=== PATIENT | female | born 1950 | race Hispanic/Latino ===

== ENCOUNTER 2023-03-08 22:07 | Emergency (ER) | payer OTHER ==
--- OUTSIDE RECORDS SUMMARY | 2023-03-08 22:16 | XMS REPORT | Continuity of Care Document ---
:1950 Author Organization [facility] t Address [address] [place] [address] [place] [id number] Care Team Providers Name Role Phone ADOLFO BOSCH Primary Care Physician Unavailable LORENA SOLIS Attending Clinician Unavailable Adolfo Bosch Attending Clinician Unavailable Rudy Maldonado Attending Clinician Unavailable Sowmya Whelan Attending Clinician Unavailable Leticia Fleming Attending Clinician Unavailable DECLAN MCCALLUM Attending Clinician Unavailable SANTANA MEZA Attending Clinician Unavailable Santana Wheeler Attending Clinician Doctor Unassigned, [place] Attending Clinician Unavailable Pob, [facility] Main Attending Clinician Unavailable Lorena Solis MD Attending Clinician 2, [facility] Attending Clinician Unavailable Vtc-Lab Attending Clinician Unavailable Declan Mccallum MD Attending Clinician MELLISSA PARHAM Attending Clinician Unavailable Mellissa Parham MD Attending Clinician ZOË CASAREZ Attending Clinician Unavailable Zoë Rodriguez Attending Clinician Alem Carmen PA-C Attending Clinician Angela Dela Cruz MD Attending Clinician ANGELA DELA CRUZ Attending Clinician Unavailable ALEM CARMEN Attending Clinician Unavailable Thuy Ny Attending Clinician MELBA OBRIEN Attending Clinician Unavailable Melba Garrido Attending Clinician Norberto Du MD Attending Clinician Yamilet LANG, Roberto Huerta Attending Clinician Ra Caldera DO Attending Clinician Gustavo Lezama MD Attending Clinician GUSTAVO LEZAMA Attending Clinician Unavailable Lab, [facility] Attending Clinician Unavailable Prasanth LANG, Sean Jennings Attending Clinician [phone] Annie Morel Attending Clinician LORENA SOLIS Admitting Clinician Unavailable Lorena Solis MD Admitting Clinician MELLISSA PARHAM Admitting Clinician Unavailable MELBA OBRIEN Admitting Clinician Unavailable Payers Payer Name Policy Type Policy Number Effective Date Expiration Date S loli MEDICARE PART A [id number] 2016 \T\ B 00:00:00 MEDICARE [id number] 2018 [facility] NOVITAS 00:00:00 [facility] MEDICARE MB [id number] 2018 [facility] NOVITAS 00:00:00 [facility] Problems Condition Condition Condition Status Onset Resolution Last Treating Co mments Source Name Details Category Date Date Treatment Clinician Date Osteopenia Osteopenia Disease Active 2019-0 U nivers 1-22 ity of 00:00: [address] Branch Asymptomat Asymptomat Disease Active U nivers ic ic 1-10 ity of microscop[place] 00 Medical hematuria hematuria Bran ch Positive Positive Disease Active 2017-10 Unive rs anti-CCP anti-CCP 10-29 ity of test: 89 test: 89 00:00: [address] Branch Positive Positive Disease Active 2017-10 Unive rs ROMEL ROMEL 10-28 ity of (antinucle [place]antinucle [place] Medical antibody) antibody) Bran ch 1:160 1:160 SS-A SS-A Disease Active 2017-10 Univers antibody antibody 1- ity of positive positive 00:00: [place] 00 Medical Branch At risk At risk Disease Active 2017-10 Univers for bone for bone 0-31 ity of density density 00:00: [place] loss loss 00 [facility] Branch [id number] BMI Problem Common 27.0-27.9, [facility] adult - [facility] [id number] BMI Problem Common 31.0-31.9, [facility] adult - [facility] [id number] [place] [address] (BMI Spirit 30.0-34.9) [facility] [id number] Mixed Problem Common hyperlipid Spirit emia [facility] Allergic Allergic Problem Commo n rhinitis rhinitis, Spiri t unspecifie - d [facility] [id number] Type 2 Problem Common diabetes [facility] mellitus - without complicati [facility] on, Medical without Center long-term current use of insulin [id number] 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 [id number] Overweight Problem Co mmon (BMI Spirit 25.0-29.9) - [facility] [id number] SOB Problem Common (shortness Spirit of breath) - [facility] Allergies, Adverse Reactions, Alerts Allergy Allergy Status Severity Reaction(s) Onset Inactive Treating Comm ents Source Name Type Date Date Clinician NO KNOWN Drug Active Univers ALLERGIE Class ity of S [facility] Social History Social Habit Start Date Stop Date Quantity Comments Source History of [facility] - Tobacco Use [facility] Sex Assigned At [facility] - [facility] Exposure to 2023-02-04 2023-02-14 Not sure University of SARS-CoV-2 00:00:00 09:55:00 [place] Medical (event) Branch Alcohol intake 2023-02-14 2023-02-14 Current University of 00:00:00 00:00:00 non-drinker of [facility] alcohol (finding) [place] Tobacco use and 2022-05-28 2022-05-28 Smokeless tobacco Un iversity of exposure 00:00:00 00:00:00 non-user [facility] Smoking Status Start Date Stop Date Source Never smoked tobacco [facility] Medications Ordered Filled Start Stop Current Ordering Indication Dosage Frequency Signature Comments Components Source Medication Medication Date Date Medication? Clinician (SIG) Name Name diclofenac 2022- Yes [id number] 75mg Take 1 Univers 75 mg EC 02-14 [id number] tablet by ity of tablet 00:00: 04:59 mouth 2 [place] 00 :00 (two) Medical times [place] daily with meals for 30 days. diclofenac 2022- Yes [id number] 75mg Take 1 Univers 75 mg EC 02-14 [id number] tablet by ity of tablet 00:00: 04:59 mouth 2 [place] 00 :00 (two) Medical times [place] daily with meals for 30 days. acetaminoph Yes 1000mg Take 1,000 Univers en 500 mg 2-14 mg by ity of tablet 13:11: mouth [place] 22 every 12 Medical (twelve) Branch hours as needed for Pain. calcium-vit Yes 1{tbl} Take 1 Un pamella geronimo D 250 2-14 tablet by ity of (625)-125 13:11: mouth [place] mg-unit per 22 daily. Medica l tablet Branch omega Yes Take by Univers 3-dha-epa-f 2-14 mouth. ity of rosemary oil 13:11: [place] 100-160-1,0 22 Medical 00 mg Cap Branch atorvastati Yes 10mg Take 10 mg Univers n 10 mg 2-14 by mouth ity of tablet 13:11: at [place] 22 bedtime. Medical Branch telmisartan Yes 80mg Take 80 mg Univers 80 mg 2-14 by mouth ity of tablet 13:11: daily. [place] [address] Medical Branch metFORMIN Yes 1{tbl} Take 1 Univ ers 1,000 mg 2-14 tablet by ity of tablet 13:11: mouth 2 [place] 22 (two) Medical times Branch daily with meals. acetaminoph 2023-0 Yes 1000mg Take 1,000 Univers en 500 mg 2-14 mg by ity of tablet 13:11: mouth [place] 22 every 12 Medical (twelve) Branch hours as needed for Pain. calcium-vit 3-0 Yes 1{tbl} Take 1 Un pamella geronimo D 250 2-14 tablet by ity of (625)-125 13:11: mouth [place] mg-unit per 22 daily. Medica l tablet Branch omega 2022-0 Yes Take by Univers 3-dha-epa-f 2-14 mouth. ity of rosemary oil 13:11: [place] 100-160-1,0 22 Medical 00 mg Cap Branch atorvastati 2022-0 Yes 10mg Take 10 mg Univers n 10 mg 2-14 by mouth ity of tablet 13:11: at [place] [address] bedtime. Medical Branch telmisartan 2022-0 Yes 80mg Take 80 mg Univers 80 mg 2-14 by mouth ity of tablet 13:11: daily. 22 Medical Branch metFORMIN 3-0 Yes 1{tbl} Take 1 Univ ers 1,000 mg 2-14 tablet by ity of tablet 13:11: mouth 2 22 (two) Medical times Branch daily with meals. acetaminoph 3-0 Yes 1000mg Take 1,000 Univers en 500 mg 2-14 mg by ity of tablet 13:11: mouth [place] 22 every 12 Medical (twelve) Branch hours as needed for Pain. calcium-vit 2022-0 Yes 1{tbl} Take 1 Un pamella geronimo D 250 2-14 tablet by ity of (625)-125 13:11: mouth [place] mg-unit per 22 daily. Medica l tablet Branch omega 2022-0 Yes Take by Univers 3-dha-epa-f 2-14 mouth. ity of rosemary oil 13:11: [place] 100-160-1,0 22 Medical 00 mg Cap Branch atorvastati 2022-0 Yes 10mg Take 10 mg Univers n 10 mg 2-14 by mouth ity of tablet 13:11: at [place] 22 bedtime. Medical Branch telmisartan 3-0 Yes 80mg Take 80 mg Univers 80 mg 2-14 by mouth ity of tablet 13:11: daily. [place] 22 Medical Branch metFORMIN 2023-0 Yes 1{tbl} Take 1 Univ ers 1,000 mg 2-14 tablet by ity of tablet 13:11: mouth 2 22 (two) Medical times Branch daily with meals. acetaminoph 2023-0 Yes 1000mg Take 1,000 Univers en 500 mg 2-14 mg by ity of tablet 13:11: mouth [place] 22 every 12 Medical (twelve) Branch hours as needed for Pain. calcium-vit 2023-0 Yes 1{tbl} Take 1 Un pamella geronimo D 250 2-14 tablet by ity of (625)-125 13:11: mouth [place] mg-unit per 22 daily. Medica l tablet Branch omega 2022-0 Yes Take by Univers 3-dha-epa-f 2-14 mouth. ity of rosemary oil 13:11: [place] 100-160-1,0 22 Medical 00 mg Cap Branch atorvastati 2022-0 Yes 10mg Take 10 mg Univers n 10 mg 2-14 by mouth ity of tablet 13:11: at [place] [address] bedtime. Medical Branch telmisartan 2022-0 Yes 80mg Take 80 mg Univers 80 mg 2-14 by mouth ity of tablet 13:11: daily. [place] [address] Medical Branch metFORMIN 3-0 Yes 1{tbl} Take 1 Univ ers 1,000 mg 2-14 tablet by ity of tablet 13:11: mouth 2 22 (two) Medical times Branch daily with meals. acetaminoph 2023-0 Yes 1000mg Take 1,000 Univers en 500 mg 2-14 mg by ity of tablet 13:11: mouth [place] 22 every 12 Medical (twelve) Branch hours as needed for Pain. calcium-vit 2023-0 Yes 1{tbl} Take 1 Un pamella geronimo D 250 2-14 tablet by ity of (625)-125 13:11: mouth [place] mg-unit per 22 daily. Medica l tablet Branch omega 2022-0 Yes Take by Univers 3-dha-epa-f 2-14 mouth. ity of rosemary oil 13:11: [place] 100-160-1,0 22 Medical 00 mg Cap Branch atorvastati 202-0 Yes 10mg Take 10 mg Univers n 10 mg 2-14 by mouth ity of tablet 13:11: at [place] [address] bedtime. Medical Branch telmisartan 2023-0 Yes 80mg Take 80 mg Univers 80 mg 2-14 by mouth ity of tablet 13:11: daily. [place] [address] Medical Branch metFORMIN 2022-0 Yes 1{tbl} Take 1 Univ ers 1,000 mg 2-14 tablet by ity of tablet 13:11: mouth 2 [place] 22 (two) Medical times Branch daily with meals. acetaminoph 2023-0 Yes 1000mg Take 1,000 Univers en 500 mg 2-14 mg by ity of tablet 13:11: mouth [place] 22 every 12 Medical (twelve) Branch hours as needed for Pain. calcium-vit 2022-0 Yes 1{tbl} Take 1 Un pamella geronimo D 250 2-14 tablet by ity of (625)-125 13:11: mouth [place] mg-unit per 22 daily. Medica l tablet Branch omega 0 Yes Take by Univers 3-dha-epa-f 2-14 mouth. ity of rosemary oil 13:11: [place] 100-160-1,0 22 Medical 00 mg Cap Branch atorvastati 2022-0 Yes 10mg Take 10 mg Univers n 10 mg 2-14 by mouth ity of tablet 13:11: at [place] [address] bedtime. Medical Branch telmisartan 2022-0 Yes 80mg Take 80 mg Univers 80 mg 2-14 by mouth ity of tablet 13:11: daily. [place] [address] Medical Branch metFORMIN 2022-0 Yes 1{tbl} Take 1 Univ ers 1,000 mg 2-14 tablet by ity of tablet 13:11: mouth 2 [place] [address] (two) Medical times Branch daily with meals. acetaminoph 2023-0 Yes 1000mg Take 1,000 Univers en 500 mg 2-14 mg by ity of tablet 13:11: mouth [place] 22 every 12 Medical (twelve) Branch hours as needed for Pain. calcium-vit 2022-0 Yes 1{tbl} Take 1 Un pamella greonimo D 250 2-14 tablet by ity of (625)-125 13:11: mouth [place] mg-unit per 22 daily. Medica l tablet Branch omega 0 Yes Take by Univers 3-dha-epa-f 2-14 mouth. ity of rosemary oil 13:11: [place] 100-160-1,0 22 Medical 00 mg Cap Branch atorvastati 2022-0 Yes 10mg Take 10 mg Univers n 10 mg 2-14 by mouth ity of tablet 13:11: at [place] [address] bedtime. Medical Branch telmisartan Yes 80mg Take 80 mg Univers 80 mg 2-14 by mouth ity of tablet 13:11: daily. [place] [address] Medical Branch metFORMIN Yes 1{tbl} Take 1 Univ ers 1,000 mg 2-14 tablet by ity of tablet 13:11: mouth 2 [place] [address] (two) Medical times Branch daily with meals. water for 2022- No PRN, Univers irrigation 11-27 Starting ity of irrigation 13:48: 14:12 [place] Sat [place] solution 00 :11 11/27/22 at Medic al 0748, Branch Until Sat11/27/22 at 0812, Routine, Intra-op simethicone 2022- No PRN, Unive rs (GAS RELIEF 11-27 Starting ity of (SIMETHICON 13:48: 14:12 on Sat Emiliano as E)) 40 00 :11 11/27/22 at Medical mg/0.6 mL 0748, Branch drops Until Sat11/27/22 at 0812, Routine, Intra-op lactated Yes 1000mL at 100 Unive rs ringers IV 1 mL/hr, ity of infusion 13:00: 1,000 [place], [place] 1[place]000 mL 00 IV Medical Infusion, Branch CONTINUOUS , Starting on Sat11/27/22 at 0700, Until Discontinu ed, Routine, PACU lactated 2022- No 1000mL at 42 Unive rs ringers IV 11-27 mL/hr, ity of infusion 13:00: 12:57 1,000 mL, Emiliano as 1,000 mL 00 :00 IV Medical Infusion, Branch ONCE, 1 dose, On Sat11/27/22 at 0700, Routine, DSU Pre-op lactated 2022- No 1000mL at 100 Univ ers ringers IV 11-27 mL/hr, ity of infusion 13:00: 17:08 1,000 mL, [place] as 1,000 mL 00 :11 IV Medical Infusion, Branch CONTINUOUS , Starting on Sat11/27/22 at 0700, Until Sat11/27/22 at 1108, Routine, PACU lactated 3-0 2023- No 1000mL at 42 Unive rs ringers IV - 01-31 mL/hr, ity of infusion 13:00: 12:57 1,000 mL, [place] as 1,000 mL 00 :00 IV Medical Infusion, Branch ONCE, 1 dose, On Sat11/27/22 at 0700, Routine, DSU Pre-op acetaminoph 3-0 Yes 1000mg Take 1,000 Univers en 500 mg 1-31 mg by ity of tablet 09:08: mouth [place] 11 every 12 Medical (twelve) Branch hours as needed for Pain. calcium-vit 2022-0 Yes 1{tbl} Take 1 Un pamella geronimo D 250 1-31 tablet by ity of (625)-125 09:08: mouth [place] mg-unit per 11 daily. Medica l tablet Branch omega 0 Yes Take by Univers 3-dha-epa-f 1-31 mouth. ity of rosemary oil 09:08: [place] 100-160-1,0 11 Medical 00 mg Cap Branch atorvastati 0 Yes 10mg Take 10 mg Univers n 10 mg 1-31 by mouth ity of tablet 09:08: at [place] [address] bedtime. Medical Branch telmisartan 2022-0 Yes 80mg Take 80 mg Univers 80 mg 1-31 by mouth ity of tablet 09:08: daily. [place] [address] Medical Branch metFORMIN 2022-0 Yes 1{tbl} Take 1 Univ ers 1,000 mg 1-31 tablet by ity of tablet 09:08: mouth 2 [place] [address] (two) Medical times Branch daily with meals. acetaminoph 2022-0 Yes 1000mg Take 1,000 Univers en 500 mg 1-31 mg by ity of tablet 09:08: mouth [place] 11 every 12 Medical (twelve) Branch hours as needed for Pain. calcium-vit 2022-0 Yes 1{tbl} Take 1 Un pamella geronimo D 250 1-31 tablet by ity of (625)-125 09:08: mouth [place] mg-unit per 11 daily. Medica l tablet Branch omega 2022-0 Yes Take by Univers 3-dha-epa-f 1-31 mouth. ity of rosemary oil 09:08: [place] 100-160-1,0 11 Medical 00 mg Cap Branch atorvastati 3-0 Yes 10mg Take 10 mg Univers n 10 mg 1-31 by mouth ity of tablet 09:08: at [place] [address] bedtime. Medical Branch telmisartan 3-0 Yes 80mg Take 80 mg Univers 80 mg 1-31 by mouth ity of tablet 09:08: daily. [place] [address] Medical Branch metFORMIN 3-0 Yes 1{tbl} Take 1 Univ ers 1,000 mg 1-31 tablet by ity of tablet 09:08: mouth 2 [place] [address] (two) Medical times Branch daily with meals. acetaminoph 2023-0 Yes 1000mg Take 1,000 Univers en 500 mg 1-31 mg by ity of tablet 09:08: mouth [place] [address] every 12 Medical (twelve) Branch hours as needed for Pain. calcium-vit 2023-0 Yes 1{tbl} Take 1 Un pamella geronimo D 250 1-31 tablet by ity of (625)-125 09:08: mouth [place] mg-unit per daily. Medica l tablet Branch omega 2022-0 Yes Take by Univers 3-dha-epa-f 1-31 mouth. ity of rosemary oil 09:08: [place] 100-160-1,0 11 Medical 00 mg Cap Branch atorvastati 2022-0 Yes 10mg Take 10 mg Univers n 10 mg 1-31 by mouth ity of tablet 09:08: at [place] [address] bedtime. Medical Branch telmisartan 3-0 Yes 80mg Take 80 mg Univers 80 mg 1-31 by mouth ity of tablet 09:08: daily. [place] [address] Medical Branch metFORMIN 3-0 Yes 1{tbl} Take 1 Univ ers 1,000 mg 1-31 tablet by ity of tablet 09:08: mouth 2 [place] [address] (two) Medical times [place] daily with meals. acetaminoph 2023-0 Yes 1000mg Take 1,000 Univers en 500 mg 1-31 mg by ity of tablet 09:08: mouth [place] [address] every 12 Medical (twelve) Branch hours as needed for Pain. calcium-vit 2023-0 Yes 1{tbl} Take 1 Un pamella geronimo D 250 1-31 tablet by ity of (625)-125 09:08: mouth [place] mg-unit per 11 daily. Medica l tablet Branch omega 2023-0 Yes Take by Univers 3-dha-epa-f 1-31 mouth. ity of rosemary oil 09:08: [place] 100-160-1,0 11 Medical 00 mg Cap Branch atorvastati 2022-0 Yes 10mg Take 10 mg Univers n 10 mg 1-31 by mouth ity of tablet 09:08: at [place] [address] bedtime. Medical Branch telmisartan 2022-0 Yes 80mg Take 80 mg Univers 80 mg 1-31 by mouth ity of tablet 09:08: daily. [place] [address] Medical Branch metFORMIN 2022-0 Yes 1{tbl} Take 1 Univ ers 1,000 mg 1-31 tablet by ity of tablet 09:08: mouth 2 [place] [address] (two) Medical times Branch daily with meals. acetaminoph 2022-0 Yes 1000mg Take 1,000 Univers en 500 mg 1-31 mg by ity of tablet 09:08: mouth [place] every 12 Medical (twelve) Branch hours as needed for Pain. calcium-vit 2022-0 Yes 1{tbl} Take 1 Un pamella geronimo D 250 1-31 tablet by ity of (625)-125 09:08: mouth [place] mg-unit per 11 daily. Medica l tablet Branch omega Yes Take by Univers 3-dha-epa-f 1-31 mouth. ity of rosemary oil 09:08: [place] 100-160-1,0 11 Medical 00 mg Cap Branch atorvastati 0 Yes 10mg Take 10 mg Univers n 10 mg 1-31 by mouth ity of tablet 09:08: at [place] [address] bedtime. Medical Branch telmisartan 2022-0 Yes 80mg Take 80 mg Univers 80 mg 1-31 by mouth ity of tablet 09:08: daily. [place] [address] Medical Branch metFORMIN 2022-0 Yes 1{tbl} Take 1 Univ ers 1,000 mg 1-31 tablet by ity of tablet 09:08: mouth 2 [place] [address] (two) Medical times Branch daily with meals. pantoprazol 3-0 Yes [id number] 40mg Take 1 Univers e 40 mg EC 1-31 tablet by ity of tablet 00:00: mouth [place] 00 daily. Medical Branch pantoprazol 3-0 Yes [id number] 40mg Take 1 Univers e 40 mg EC 1-31 tablet by ity of tablet 00:00: mouth [place] 00 daily. Medical Branch pantoprazol 2022-0 Yes [id number] 40mg Take 1 Univers e 40 mg EC 1-31 tablet by ity of tablet 00:00: mouth [place] 00 daily. Medical Branch pantoprazol 2022-0 Yes [id number] 40mg Take 1 Univers e 40 mg EC 1-31 tablet by ity of tablet 00:00: mouth [place] 00 daily. Medical Branch pantoprazol 2022-0 Yes [id number] 40mg Take 1 Univers e 40 mg EC 1-31 tablet by ity of tablet 00:00: mouth [place] 00 daily. Medical Branch pantoprazol 2022-0 Yes [id number] 40mg Take 1 Univers e 40 mg EC 1-31 tablet by ity of tablet 00:00: mouth [place] 00 daily. Medical Branch pantoprazol 2022-0 Yes [id number] 40mg Take 1 Univers e 40 mg EC 1-31 tablet by ity of tablet 00:00: mouth [place] 00 daily. Medical Branch pantoprazol 2022-0 Yes [id number] 40mg Take 1 Univers e 40 mg EC 1-31 tablet by ity of tablet 00:00: mouth [place] 00 daily. Medical Branch pantoprazol 2022-0 Yes [id number] 40mg Take 1 Univers e 40 mg EC 1-31 tablet by ity of tablet 00:00: mouth [place] 00 daily. Medical Branch pantoprazol 0 Yes [id number] 40mg Take 1 Univers e 40 mg EC 1-31 tablet by ity of tablet 00:00: mouth [place] 00 daily. Medical Branch methotrexat 2022-0 Yes [id number] 12.5mg Take 5 Univers e 2.5 mg 1-23 tablets by ity o f tablet 00:00: mouth [place] 00 weekly Medical Branch methotrexat 3-0 Yes [id number] 12.5mg Take 5 Univers e 2.5 mg 1-23 tablets by ity o f tablet 00:00: mouth [place] 00 weekly Medical Branch methotrexat 3-0 Yes [id number] 12.5mg Take 5 Univers e 2.5 mg 1-23 tablets by ity o f tablet 00:00: mouth [place] 00 weekly Medical Branch methotrexat 3-0 Yes [id number] 12.5mg Take 5 Univers e 2.5 mg 1-23 tablets by ity o f tablet 00:00: [facility] Branch methotrexat 2022-0 Yes [id number] 12.5mg Take 5 Univers e 2.5 mg 1-23 tablets by ity o f tablet 00:00: [facility] methotrexat 2022-0 Yes [id number] 12.5mg Take 5 Univers e 2.5 mg 1-23 tablets by ity o f tablet 00:00: [facility] Branch methotrexat 2022-0 Yes [id number] 12.5mg Take 5 Univers e 2.5 mg 1-23 tablets by ity o f tablet 00:00: [facility] methotrexat 2022-0 Yes [id number] 12.5mg Take 5 Univers e 2.5 mg 1-23 tablets by ity o f tablet 00:00: [facility] methotrexat 2022-0 Yes [id number] 12.5mg Take 5 Univers e 2.5 mg 1-23 tablets by ity o f tablet 00:00: [facility] methotrexat 2022-0 Yes [id number] 12.5mg Take 5 Univers e 2.5 mg 1-23 tablets by ity o f tablet 00:00: [facility] methotrexat 2022-0 Yes [id number] 12.5mg Take 5 Univers e 2.5 mg 1-23 tablets by ity o f tablet 00:00: [facility] methotrexat 2022-0 Yes [id number] 12.5mg Take 5 Univers e 2.5 mg 1-23 tablets by ity o f tablet 00:00: [facility] Branch methotrexat 3-0 Yes [id number] 12.5mg Take 5 Univers e 2.5 mg 1-23 tablets by ity o f tablet 00:00: [facility] methotrexat 3-0 Yes [id number] 12.5mg Take 5 Univers e 2.5 mg 1-23 tablets by ity o f tablet 00:00: [facility] methotrexat 2022-0 Yes [id number] 12.5mg Take 5 Univers e 2.5 mg 1-23 tablets by ity o f tablet 00:00: mouth [place] 00 weekly Medical Branch water for 2022- No PRN, Univers irrigation 11-06 Starting ity of irrigation 16:15: 17:18 on Sat [place] solution 00 :00 11/06/22 at Medic al 1015, Branch Until Sat11/06/22 at 1118, Routine, Intra-op simethicone 2022- No PRN, Unive rs (GAS RELIEF 11-06 Starting ity of (SIMETHICON 16:15: 17:18 on Sat [place] as E)) 40 00 :00 11/06/22 at Medical mg/0.6 mL 1015, Branch drops Until Sat11/06/22 at 1118, Routine, Intra-op lactated 2022- No 1000mL at 42 [facility] [place] [facility] rs ringers IV 1-10 01-10 mL/hr, ity of infusion 15:30: 15:52 1,000 mL, Emiliano as 1,000 mL 00 :00 IV Medical Infusion, Branch ONCE, 1 dose, On Sat11/06/22 at 0930, Routine, DSU Pre-op lactated 2022- No 1000mL at 42 [facility] [place] [facility] rs ringers IV 1-10 01-10 mL/hr, ity of infusion 15:30: 15:52 1,000 mL, Em[place] as 1,000 mL 00 :00 IV Medical Infusion, Branch ONCE, 1 dose, On Sat11/06/22 at 0930, Routine, DSU Pre-op acetaminoph Yes 1000mg Take 1,000 Univers en 500 mg 1-10 mg by ity of tablet 11:34: mouth [place] 43 every 12 Medical (twelve) Branch hours as needed for Pain. calcium-vit Yes 1{tbl} Take 1 Un pamella geronimo D 250 1-10 tablet by ity of (625)-125 11:34: mouth [place] mg-unit per 43 daily. Medica l tablet [place] omega Yes Take by Univers 3-dha-epa-f 1-10 mouth. ity of rosemary oil 11:34: [place] 100-160-1,0 43 Medical 00 mg Cap Branch atorvastati Yes 10mg Take 10 mg Univers n 10 mg 1-10 by mouth ity of tablet 11:34: at [place] 43 bedtime. Medical Branch telmisartan 2022-0 Yes 80mg Take 80 mg Univers 80 mg 1-10 by mouth ity of tablet 11:34: daily. [place] [address] Medical Branch metFORMIN 2022-0 Yes 1{tbl} Take 1 Univ ers 1,000 mg 1-10 tablet by ity of tablet 11:34: mouth 2 [place] [address] (two) Medical times Branch daily with meals. acetaminoph 202-0 Yes 1000mg Take 1,000 Univers en 500 mg 1-10 mg by ity of tablet 11:34: mouth [place] 43 every 12 Medical (twelve) Branch hours as needed for Pain. calcium-vit 2022-0 Yes 1{tbl} Take 1 Un pamella geronimo D 250 1-10 tablet by ity of (625)-125 11:34: mouth [place] mg-unit per 43 daily. Medica l tablet Branch omega 2022-0 Yes Take by Univers 3-dha-epa-f 1-10 mouth. ity of rosemary oil 11:34: [place] 100-160-1,0 43 Medical 00 mg Cap Branch atorvastati 2022-0 Yes 10mg Take 10 mg Univers n 10 mg 1-10 by mouth ity of tablet 11:34: at [place] [address] bedtime. Medical Branch telmisartan 2022-0 Yes 80mg Take 80 mg Univers 80 mg 1-10 by mouth ity of tablet 11:34: daily. [place] [address] Medical Branch metFORMIN 2022-0 Yes 1{tbl} Take 1 Univ ers 1,000 mg 1-10 tablet by ity of tablet 11:34: mouth 2 [place] [address] (two) Medical times Branch daily with meals. acetaminoph 2022-0 Yes 1000mg Take 1,000 [facility] en 500 mg 1-10 mg by ity of tablet 11:34: mouth [place] 43 every 12 Medical (twelve) Branch hours as needed for Pain. calcium-vit 2022-0 Yes 1{tbl} Take 1 Un pamella geronimo D 250 1-10 tablet by ity of (625)-125 11:34: mouth [place] mg-unit per 43 daily. Medica l tablet Branch omega 2022-0 Yes Take by [facility] 3-dha-epa-f 1-10 mouth. ity of rosemary oil 11:34: [place] 100-160-1,0 43 Medical 00 mg Cap Branch atorvastati 0 Yes 10mg Take 10 mg [facility] n 10 mg 1-10 by mouth ity of tablet 11:34: at [place] [address] bedtime. Medical Branch telmisartan 0 Yes 80mg Take 80 mg [facility] 80 mg 1-10 by mouth ity of tablet 11:34: daily. [place] [address] Medical Branch metFORMIN 2022-0 Yes 1{tbl} Take 1 Univ ers 1,000 mg 1-10 tablet by ity of tablet 11:34: mouth 2 [place] [address] (two) Medical times Branch daily with meals. acetaminoph 2022-0 Yes 1000mg Take 1,000 [facility] en 500 mg 1-10 mg by ity of tablet 11:34: mouth [place] 43 every 12 Medical (twelve) Branch hours as needed for Pain. calcium-vit 2022-0 Yes 1{tbl} Take 1 Un pamella geronimo D 250 1-10 tablet by ity of (625)-125 11:34: mouth [place] mg-unit per 43 daily. Medica l tablet Branch omega Yes Take by [facility] 3-dha-epa-f 1-10 mouth. ity of rosemary oil 11:34: [place] 100-160-1,0 43 Medical 00 mg Cap Branch atorvastati 0 Yes 10mg Take 10 mg [facility] n 10 mg 1-10 by mouth ity of tablet 11:34: at [place] [address] bedtime. Medical Branch telmisartan 0 Yes 80mg Take 80 mg [facility] 80 mg 1-10 by mouth ity of tablet 11:34: daily. [place] [address] Medical Branch metFORMIN 2022-0 Yes 1{tbl} Take 1 Univ ers 1,000 mg 1-10 tablet by ity of tablet 11:34: mouth 2 [place] [address] (two) Medical times Branch daily with meals. acetaminoph 2022-0 Yes 1000mg Take 1,000 [facility] en 500 mg 1-10 mg by ity of tablet 11:34: mouth [place] 43 every 12 Medical (twelve) Branch hours as needed for Pain. calcium-vit 2022-0 Yes 1{tbl} Take 1 Un pamella geronimo D 250 1-10 tablet by ity of (625)-125 11:34: mouth [place] mg-unit per 43 daily. Medica l tablet Branch omega 0 Yes Take by [facility] 3-dha-epa-f 1-10 mouth. ity of rosemary oil 11:34: [place] 100-160-1,0 43 Medical 00 mg Cap Branch atorvastati 0 Yes 10mg Take 10 mg [facility] n 10 mg 1-10 by mouth ity of tablet 11:34: at [place] [address] bedtime. Medical Branch telmisartan 0 Yes 80mg Take 80 mg [facility] 80 mg 1-10 by mouth ity of tablet 11:34: daily. [place] [address] Medical Branch metFORMIN 0 Yes 1{tbl} Take 1 Univ ers 1,000 mg 1-10 tablet by ity of tablet 11:34: mouth 2 [place] [address] (two) Medical times Branch daily with meals. acetaminoph 0 Yes 1000mg Take 1,000 [facility] en 500 mg 1-10 mg by ity of tablet 11:34: mouth [place] 43 every 12 Medical (twelve) Branch hours as needed for Pain. calcium-vit 0 Yes 1{tbl} Take 1 Un pamella geronimo D 250 1-10 tablet by ity of (625)-125 11:34: mouth [place] mg-unit per 43 daily. Medica l tablet Branch omega Yes Take by [facility] 3-dha-epa-f 1-10 mouth. ity of rosemary oil 11:34: [place] 100-160-1,0 43 Medical 00 mg Cap Branch atorvastati 0 Yes 10mg Take 10 mg [facility] n 10 mg 1-10 by mouth ity of tablet 11:34: at [place] [address] bedtime. Medical Branch telmisartan 0 Yes 80mg Take 80 mg [facility] 80 mg 1-10 by mouth ity of tablet 11:34: daily. [place] [address] Medical Branch metFORMIN 0 Yes 1{tbl} Take 1 Univ ers 1,000 mg 1-10 tablet by ity of tablet 11:34: mouth 2 [place] [address] (two) Medical times Branch daily with meals. acetaminoph 0 Yes 1000mg Take 1,000 [facility] en 500 mg 1-10 mg by ity of tablet 11:34: mouth [place] 43 every 12 Medical (twelve) Branch hours as needed for Pain. calcium-vit 2022-0 Yes 1{tbl} Take 1 Un pamella geronimo D 250 1-10 tablet by ity of (625)-125 11:34: mouth [place] mg-unit per 43 daily. Medica l tablet Branch omega 0 Yes Take by [facility] 3-dha-epa-f 1-10 mouth. ity of rosemary oil 11:34: [place] 100-160-1,0 43 Medical 00 mg Cap Branch atorvastati 0 Yes 10mg Take 10 mg [facility] n 10 mg 1-10 by mouth ity of tablet 11:34: at [place] [address] bedtime. Medical Branch telmisartan 0 Yes 80mg Take 80 mg [facility] 80 mg 1-10 by mouth ity of tablet 11:34: daily. [place] [address] Medical Branch metFORMIN 0 Yes 1{tbl} Take 1 Univ ers 1,000 mg 1-10 tablet by ity of tablet 11:34: mouth 2 [place] [address] (two) Medical times Branch daily with meals. acetaminoph Yes 1000mg Take 1,000 [facility] en 500 mg 1-10 mg by ity of tablet 11:34: mouth [place] 43 every 12 Medical (twelve) Branch hours as needed for Pain. calcium-vit 0 Yes 1{tbl} Take 1 Un pamella geronimo D 250 1-10 tablet by ity of 625)-125 11:34: mouth [place] mg-unit per 43 daily. Medica l tablet Branch omega Yes Take by [facility] 3-dha-epa-f 1-10 mouth. ity of rosemary oil 11:34: [place] 100-160-1,0 43 Medical 00 mg Cap Branch atorvastati 0 Yes 10mg Take 10 mg [facility] n 10 mg 1-10 by mouth ity of tablet 11:34: at [place] [address] bedtime. Medical Branch telmisartan 0 Yes 80mg Take 80 mg [facility] 80 mg 1-10 by mouth ity of tablet 11:34: daily. [place] [address] Medical Branch metFORMIN 0 Yes 1{tbl} Take 1 Univ ers 1,000 mg 1-10 tablet by ity of tablet 11:34: mouth 2 [place] 43 (two) Medical times Branch daily with meals. HYDROcodone 2021-10- No 1{tbl} 1 tablet, Univers -acetaminop 1-10 11-10 Oral, ity of hen (NORCO 03:15: 02:41 ONCE, 1 Emiliano as 5) 5-325 mg 00 :00 dose, On Medi analilia tablet 1 Wed Branch tablet 09/05/22 at 2115, Routine methotrexat 2021-10 Yes [id number] 20mg Take 8 Univers e 2.5 mg 0-17 tablets by ity o f tablet 00:00: [facility] methotrexat 2021-10 Yes [id number] 20mg Take 8 Univers e 2.5 mg 0-17 tablets by ity o f tablet 00:00: [facility] methotrexat 2021-10 Yes [id number] 20mg Take 8 Univers e 2.5 mg 0-17 tablets by ity o f tablet 00:00: [facility] methotrexat 2021-10 Yes [id number] 20mg Take 8 Univers e 2.5 mg 0-17 tablets by ity o f tablet 00:00: [facility] methotrexat 2021-10 Yes [id number] 20mg Take 8 Univers e 2.5 mg 0-17 tablets by ity o f tablet 00:00: [facility] methotrexat 2021-10 Yes [id number] 20mg Take 8 Univers e 2.5 mg 0-17 tablets by ity o f tablet 00:00: [facility] methotrexat 2021-10 Yes [id number] 20mg Take 8 Univers e 2.5 mg 0-17 tablets by ity o f tablet 00:00: [facility] methotrexat 2021-10 Yes [id number] 20mg Take 8 Univers e 2.5 mg 0-17 tablets by ity o f tablet 00:00: [facility] methotrexat 2021-10 Yes [id number] 20mg Take 8 Univers e 2.5 mg 0-17 tablets by ity o f tablet 00:00: [facility] methotrexat 2021-10 Yes [id number] 20mg Take 8 Univers e 2.5 mg 0-17 tablets by ity o f tablet 00:00: [facility] methotrexat 2021-10 Yes [id number] 20mg Take 8 Univers e 2.5 mg 0-17 tablets by ity o f tablet 00:00: [facility] methotrexat 2021-10 Yes [id number] 20mg Take 8 Univers e 2.5 mg 0-17 tablets by ity o f tablet 00:00: [facility] 00 weekly Medical Branch methotrexat 2021-10 Yes [id number] 20mg Take 8 Univers e 2.5 mg 0-17 tablets by ity o f tablet 00:00: [facility] 00 weekly Medical Branch methotrexat 2021-10 Yes [id number] 20mg Take 8 Univers e 2.5 mg 0-17 tablets by ity o f tablet 00:00: [facility] 00 weekly Medical Branch methotrexat 2021-2022- No [id number] 20mg Take 8 Univers e 2.5 mg 0-17 01-23 tablets by ity of tablet 00:00: 00:00 [facility] 00 :00 weekly Medical Branch methotrexat 2021-2022- No [id number] 20mg Take 8 [facility] e 2.5 mg 0-17 -23 tablets by ity of tablet 00:00: 00:00 [facility] 00 :00 weekly Medical Branch methotrexat 2021-2022- No [id number] 20mg Take 8 Univers e 2.5 mg 0-17 -23 tablets by ity of tablet 00:00: 00:00 [facility] 00 :00 weekly Medical Branch methotrexat 2021-2022- No [id number] 20mg Take 8 [facility] e 2.5 mg 0-17 -23 tablets by ity of tablet 00:00: 00:00 [facility] 00 :00 weekly Medical Branch methotrexat 2021-2022- No [id number] 20mg Take 8 [facility] e 2.5 mg 0-17 -23 tablets by ity of tablet 00:00: 00:00 [facility] 00 :00 weekly Medical Branch methotrexat 2021-2022- No [id number] 20mg Take 8 [facility] e 2.5 mg 0-17 -23 tablets by ity of tablet 00:00: 00:00 [facility] 00 :00 weekly Medical Branch foLIC acid Yes [id number] 1mg Take 1 Univers 1 mg tablet 9-19 tablet by ity of 00:00: [facility] 00 daily. Medical Branch foLIC acid 0 Yes [id number] 1mg Take 1 [facility] 1 mg tablet 9-19 tablet by ity of 00:00: [facility] 00 daily. Medical Branch foLIC acid 2-0 Yes [id number] 1mg Take 1 [facility] 1 mg tablet 9-19 tablet by ity of 00:00: mouth [place] 00 daily. Medical Branch foLIC acid 2-0 Yes [id number] 1mg Take 1 [facility] 1 mg tablet 9-19 tablet by ity of 00:00: mouth [place] 00 daily. Medical Branch foLIC acid 2-0 Yes [id number] 1mg Take 1 [facility] 1 mg tablet 9-19 tablet by ity of 00:00: mouth [place] 00 daily. Medical Branch foLIC acid 2-0 Yes [id number] 1mg Take 1 [facility] 1 mg tablet 9-19 tablet by ity of 00:00: mouth [place] 00 daily. Medical Branch foLIC acid 2021-0 Yes [id number] 1mg Take 1 [facility] 1 mg tablet 9-19 tablet by ity of 00:00: mouth [place] 00 daily. Medical Branch foLIC acid 2021-0 Yes [id number] 1mg Take 1 [facility] 1 mg tablet 9-19 tablet by ity of 00:00: mouth [place] 00 daily. Medical Branch foLIC acid 2021-0 Yes [id number] 1mg Take 1 [facility] 1 mg tablet 9-19 tablet by ity of 00:00: mouth [place] 00 daily. Medical Branch foLIC acid 2021-0 Yes [id number] 1mg Take 1 [facility] 1 mg tablet 9-19 tablet by ity of 00:00: mouth [place] 00 daily. Medical Branch foLIC acid 2021-0 Yes [id number] 1mg Take 1 [facility] 1 mg tablet 9-19 tablet by ity of 00:00: mouth [place] 00 daily. Medical Branch foLIC acid 2021-0 Yes [id number] 1mg Take 1 [facility] 1 mg tablet 9-19 tablet by ity of 00:00: mouth [place] 00 daily. Medical Branch foLIC acid 2-0 Yes [id number] 1mg Take 1 [facility] 1 mg tablet 9-19 tablet by ity of 00:00: mouth [place] 00 daily. Medical Branch foLIC acid 2-0 Yes [id number] 1mg Take 1 [facility] 1 mg tablet 9-19 tablet by ity of 00:00: mouth [place] 00 daily. Medical Branch foLIC acid 2-0 Yes [id number] 1mg Take 1 [facility] 1 mg tablet 9-19 tablet by ity of 00:00: mouth [place] 00 daily. Medical Branch foLIC acid 2-0 Yes [id number] 1mg Take 1 [facility] 1 mg tablet 9-19 tablet by ity of 00:00: mouth [place] 00 daily. Medical Branch foLIC acid 2021-0 Yes [id number] 1mg Take 1 [facility] 1 mg tablet 9-19 tablet by ity of 00:00: mouth [place] 00 daily. Medical Branch foLIC acid 2021-0 Yes [id number] 1mg Take 1 [facility] 1 mg tablet 9-19 tablet by ity of 00:00: mouth [place] 00 daily. Medical Branch foLIC acid 2021-0 Yes [id number] 1mg Take 1 [facility] 1 mg tablet 9-19 tablet by ity of 00:00: mouth [place] 00 daily. Medical Branch foLIC acid 2021-0 Yes [id number] 1mg Take 1 [facility] 1 mg tablet 9-19 tablet by ity of 00:00: mouth [place] 00 daily. Medical Branch foLIC acid 2021-0 Yes [id number] 1mg Take 1 [facility] 1 mg tablet 9-19 tablet by ity of 00:00: mouth [place] 00 daily. Medical Branch foLIC acid 2021-0 Yes [id number] 1mg Take 1 [facility] 1 mg tablet 9-19 tablet by ity of 00:00: mouth [place] 00 daily. Medical Branch foLIC acid 2021-0 Yes [id number] 1mg Take 1 [facility] 1 mg tablet 9-19 tablet by ity of 00:00: mouth [place] 00 daily. Medical Branch foLIC acid 2021-0 Yes [id number] 1mg Take 1 [facility] 1 mg tablet 9-19 tablet by ity of 00:00: mouth [place] 00 daily. Medical Branch foLIC acid 2021-0 Yes [id number] 1mg Take 1 [facility] 1 mg tablet 9-19 tablet by ity of 00:00: mouth [place] 00 daily. Medical Branch foLIC acid 2021-0 Yes [id number] 1mg Take 1 [facility] 1 mg tablet 9-19 tablet by ity of 00:00: mouth [place] 00 daily. Medical Branch foLIC acid 2021-0 Yes [id number] 1mg Take 1 [facility] 1 mg tablet 9-19 tablet by ity of 00:00: mouth [place] 00 daily. Medical Branch foLIC acid 2-0 Yes [id number] 1mg Take 1 [facility] 1 mg tablet 9-19 tablet by ity of 00:00: mouth [place] 00 daily. Medical Branch foLIC acid 2022-0 Yes [id number] 1mg Take 1 [facility] 1 mg tablet 9-19 tablet by ity of 00:00: mouth [place] 00 daily. Medical Branch sodium,syeda 2021-0 2021- No 117mL Take 117 Univers ssium,mag 9-16 09-17 mL by ity of sulfates 00:00: 04:59 mouth once [place] 17.5-3.13-1 00 :00 now for 1 Med ical .6 gram dose. Branch metFORMIN 2021-0 Yes 1{tbl} Take 1 Univ ers 1,000 mg 9-09 tablet by ity of tablet 14:04: mouth 2 05 (two) Medical times Branch daily with meals. metFORMIN 2021-0 Yes 1{tbl} Take 1 Univ ers 1,000 mg 9-09 tablet by ity of tablet 14:04: mouth 2 [place] 05 (two) Medical times Branch daily with meals. metFORMIN 2021-0 Yes 1{tbl} Take 1 Univ ers 1,000 mg 9-09 tablet by ity of tablet 14:04: mouth 2 05 (two) Medical times Branch daily with meals. metFORMIN 2021-0 Yes 1{tbl} Take 1 Univ ers 1,000 mg 9-09 tablet by ity of tablet 14:04: mouth 2 05 (two) Medical times Branch daily with meals. metFORMIN 2021-0 Yes 1{tbl} Take 1 Univ ers 1,000 mg 9-09 tablet by ity of tablet 14:04: mouth 2 05 (two) Medical times Branch daily with meals. metFORMIN 2021-0 Yes 1{tbl} Take 1 Univ ers 1,000 mg 9-09 tablet by ity of tablet 14:04: mouth 2 [place] 05 (two) Medical times Branch daily with meals. metFORMIN 2021-0 Yes 1{tbl} Take 1 Univ ers 1,000 mg 9-09 tablet by ity of tablet 14:04: mouth 2 [place] 05 (two) Medical times Branch daily with meals. metFORMIN 2021-0 Yes 1{tbl} Take 1 Univ ers 1,000 mg 9-09 tablet by ity of tablet 14:04: mouth 2 [place] 05 (two) Medical times Branch daily with meals. metFORMIN 2021-0 Yes 1{tbl} Take 1 Univ ers 1,000 mg 9-09 tablet by ity of tablet 14:04: mouth 2 [place] 05 (two) Medical times Branch daily with meals. ferrous 2021- No [id number] 325mg Take 1 Un pamella sulfate 325 05-30 tablet by it y of mg (65 mg 00:00: 04:59 mouth [place] iron) 00 :00 daily for Medical tablet 90 days. Branch ferrous 2021- No [id number] 325mg Take 1 Un pamella sulfate 325 05-30 tablet by it y of mg (65 mg 00:00: 04:59 mouth [place] iron) 00 :00 daily for Medical tablet 90 days. Branch ferrous 2021- No [id number] 325mg Take 1 Un pamella sulfate 325 05-30 tablet by it y of mg (65 mg 00:00: 04:59 mouth [place] iron) 00 :00 daily for Medical tablet 90 days. [place] meloxicam Yes [id number] 7.5mg Take 1 Univers 7.5 mg 6-07 tablet by ity of tablet 00:00: mouth [place] 00 daily. [facility] meloxicam Yes [id number] 7.5mg Take 1 Univers 7.5 mg 6-07 tablet by ity of tablet 00:00: mouth [place] 00 daily. [facility] meloxicam Yes [id number] 7.5mg Take 1 Univers 7.5 mg 6-07 tablet by ity of tablet 00:00: mouth [place] 00 daily. [facility] meloxicam Yes [id number] 7.5mg Take 1 Univers 7.5 mg 6-07 tablet by ity of tablet 00:00: mouth [place] 00 daily. [facility] meloxicam Yes [id number] 7.5mg Take 1 Univers 7.5 mg 6-07 tablet by ity of tablet 00:00: mouth [place] 00 daily. [facility] meloxicam Yes [id number] 7.5mg Take 1 Univers 7.5 mg 6-07 tablet by ity of tablet 00:00: mouth [place] 00 daily. [facility] meloxicam Yes [id number] 7.5mg Take 1 [facility] 7.5 mg 6-07 tablet by ity of tablet 00:00: mouth [place] 00 daily. [facility] meloxicam Yes [id number] 7.5mg Take 1 [facility] 7.5 mg 6-07 tablet by ity of tablet 00:00: mouth [place] 00 daily. [facility] meloxicam 0 Yes [id number] 7.5mg Take 1 [facility] 7.5 mg 6-07 tablet by ity of tablet 00:00: mouth [place] 00 daily. [facility] meloxicam Yes [id number] 7.5mg Take 1 Univers 7.5 mg 6-07 tablet by ity of tablet 00:00: mouth [place] 00 daily. [facility] meloxicam Yes [id number] 7.5mg Take 1 [facility] 7.5 mg 6-07 tablet by ity of tablet 00:00: mouth [place] 00 daily. [facility] meloxicam Yes [id number] 7.5mg Take 1 [facility] 7.5 mg 6-07 tablet by ity of tablet 00:00: mouth [place] 00 daily. [facility] meloxicam Yes [id number] 7.5mg Take 1 [facility] 7.5 mg 6-07 tablet by ity of tablet 00:00: mouth [place] 00 daily. [facility] meloxicam Yes [id number] 7.5mg Take 1 [facility] 7.5 mg 6-07 tablet by ity of tablet 00:00: mouth [place] 00 daily. [facility] meloxicam 3- No [id number] 7.5mg Take 1 Univers 7.5 mg 6-07 -23 tablet by ity of tablet 00:00: 00:00 mouth [place] 00 :00 daily. [facility] meloxicam 3- No [id number] 7.5mg Take 1 Univers 7.5 mg 6-07 -23 tablet by ity of tablet 00:00: 00:00 mouth [place] 00 :00 daily. [facility] meloxicam 0 3- No [id number] 7.5mg Take 1 Univers 7.5 mg 6-07 -23 tablet by ity of tablet 00:00: 00:00 mouth [place] 00 :00 daily. [facility] meloxicam 3- No [id number] 7.5mg Take 1 [facility] 7.5 mg 6-07 -23 tablet by ity of tablet 00:00: 00:00 mouth [place] 00 :00 daily. [facility] meloxicam 3- No [id number] 7.5mg Take 1 [facility] 7.5 mg 623 tablet by ity of tablet 00:00: 00:00 mouth [place] 00 :00 daily. Medical Branch meloxicam 2021-2022- No [id number] 7.5mg Take 1 [facility] 7.5 mg 6-04 27-23 tablet by ity of tablet 00:00: 00:00 mouth [place] 00 :00 daily. Medical Branch calcium-vit 2021-0 Yes 1{tbl} Take 1 Un pamella geronimo D 250 3-31 tablet by ity of (625)-125 10:09: mouth [place] mg-unit per 05 daily. Medica l tablet Branch calcium-vit 0 Yes 1{tbl} Take 1 Un pamella geronimo D 250 3-31 tablet by ity of (625)-125 10:09: mouth [place] mg-unit per 05 daily. Medica l tablet Branch calcium-vit 0 Yes 1{tbl} Take 1 Un pamella geronimo D 250 3-31 tablet by ity of (625)-125 10:09: mouth [place] mg-unit per 05 daily. Medica l tablet Branch calcium-vit 0 Yes 1{tbl} Take 1 Un pamella geronimo D 250 3-31 tablet by ity of (625)-125 10:09: mouth [place] mg-unit per 05 daily. Medica l tablet Branch calcium-vit 0 Yes 1{tbl} Take 1 Un pamella geronimo D 250 3-31 tablet by ity of (625)-125 10:09: mouth [place] mg-unit per 05 daily. Medica l tablet Branch calcium-vit 2021-0 Yes 1{tbl} Take 1 Un pamella geronimo D 250 3-31 tablet by ity of (625)-125 10:09: mouth [place] mg-unit per 05 daily. Medica l tablet Branch calcium-vit 2021-0 Yes 1{tbl} Take 1 Un pamella geronimo D 250 3-31 tablet by ity of (625)-125 10:09: mouth [place] mg-unit per 05 daily. Medica l tablet Branch calcium-vit 2021-0 Yes 1{tbl} Take 1 Un pamella geronimo D 250 3-31 tablet by ity of (625)-125 10:09: mouth [place] mg-unit per 05 daily. Medica l tablet Branch calcium-vit Yes 1{tbl} Take 1 Un pamella geronimo D 250 3-31 tablet by ity of (625)-125 10:09: mouth [place] mg-unit per 05 daily. Medica l tablet Branch atorvastati Yes 10mg Take 10 mg Univers n 10 mg 3-31 by mouth ity of tablet 10:08: at [place] [address] bedtime. Medical Branch telmisartan 0 Yes 80mg Take 80 mg Univers 80 mg 3-31 by mouth ity of tablet 10:08: daily. [place] [address] Medical Branch atorvastati 0 Yes 10mg Take 10 mg Univers n 10 mg 3-31 by mouth ity of tablet 10:08: at [place] [address] bedtime. Medical Branch telmisartan Yes 80mg Take 80 mg [facility] 80 mg 3-31 by mouth ity of tablet 10:08: daily. [place] [address] Medical Branch atorvastati Yes 10mg Take 10 mg Univers n 10 mg 3-31 by mouth ity of tablet 10:08: at [place] [address] bedtime. Medical Branch telmisartan Yes 80mg Take 80 mg [facility] 80 mg 3-31 by mouth ity of tablet 10:08: daily. [place] [address] Medical Branch atorvastati 0 Yes 10mg Take 10 mg Univers n 10 mg 3-31 by mouth ity of tablet 10:08: at [place] [address] bedtime. Medical Branch telmisartan 0 Yes 80mg Take 80 mg [facility] 80 mg 3-31 by mouth ity of tablet 10:08: daily. [place] [address] Medical Branch atorvastati 0 Yes 10mg Take 10 mg Univers n 10 mg 3-31 by mouth ity of tablet 10:08: at [place] [address] bedtime. Medical Branch telmisartan 0 Yes 80mg Take 80 mg [facility] 80 mg 3-31 by mouth ity of tablet 10:08: daily. [place] [address] Medical Branch atorvastati 0 Yes 10mg Take 10 mg [facility] n 10 mg 3-31 by mouth ity of tablet 10:08: at [place] [address] bedtime. Medical Branch telmisartan 0 Yes 80mg Take 80 mg [facility] 80 mg 3-31 by mouth ity of tablet 10:08: daily. [place] [address] Medical Branch atorvastati 2021-0 Yes 10mg Take 10 mg Univers n 10 mg 3-31 by mouth ity of tablet 10:08: at [place] [address] bedtime. Medical Branch telmisartan 2021-0 Yes 80mg Take 80 mg [facility] 80 mg 3-31 by mouth ity of tablet 10:08: daily. [place] [address] Medical Branch atorvastati 2021-0 Yes 10mg Take 10 mg Univers n 10 mg 3-31 by mouth ity of tablet 10:08: at [place] [address] bedtime. Medical Branch telmisartan 2021-0 Yes 80mg Take 80 mg [facility] 80 mg 3-31 by mouth ity of tablet 10:08: daily. [address] Branch atorvastati 2021-0 Yes 10mg Take 10 mg Univers n 10 mg 3-31 by mouth ity of tablet 10:08: at [place] [address] bedtime. Medical Branch telmisartan 0 Yes 80mg Take 80 mg [facility] 80 mg 3-31 by mouth ity of tablet 10:08: daily. [address] Branch omega 2020-1 Yes Take by Univers 3-dha-epa-f 0-04 mouth. ity of rosemary oil 16:02: [place] (FISH OIL) 05 Medical 100-160-1,0 Branch 00 mg Cap omega 2021-1 Yes Take by [facility] 3-dha-epa-f 0-04 mouth. ity of rosemary oil 16:02: [place] (FISH OIL) 05 Medical 100-160-1,0 Branch 00 mg Cap omega 2021-1 Yes Take by [facility] 3-dha-epa-f 0-04 mouth. ity of rosemary oil 16:02: [place] (FISH OIL) 05 Medical 100-160-1,0 Branch 00 mg Cap omega 2021-1 Yes Take by [facility] 3-dha-epa-f 0-04 mouth. ity of rosemary oil 16:02: [place] (FISH OIL) 05 Medical 100-160-1,0 Branch 00 mg Cap omega 2021-1 Yes Take by [facility] 3-dha-epa-f 0-04 mouth. ity of rosemary oil 16:02: [place] (FISH OIL) 05 Medical 100-160-1,0 Branch 00 mg Cap omega 2021-1 Yes Take by [facility] 3-dha-epa-f 0-04 mouth. ity of rosemary oil 16:02: [place] (FISH OIL) 05 Medical 100-160-1,0 Branch 00 mg Cap omega 2020-10 Yes Take by [facility] 3-dha-epa-f 0-04 mouth. ity of rosemary oil 16:02: [place] (FISH OIL) 05 Medical 100-160-1,0 Branch 00 mg Cap omega 2020-10 Yes Take by [facility] 3-dha-epa-f 0-04 mouth. ity of rosemary oil 16:02: [place] (FISH OIL) 05 Medical 100-160-1,0 Branch 00 mg Cap omega 2020-10 Yes Take by [facility] 3-dha-epa-f 0-04 mouth. ity of rosemary oil 16:02: [place] (FISH OIL) 05 Medical 100-160-1,0 Branch 00 mg Cap acetaminoph 2020-10 Yes 1000mg Take 1,000 [facility] en (TYLENOL 0-04 mg by ity of EXTRA 16:02: mouth [place] STRENGTH) 03 every 12 Medica l 500 mg (twelve) Branch tablet hours as needed for Pain. acetaminoph 2020-10 Yes 1000mg Take 1,000 [facility] en (TYLENOL 0-04 mg by ity of EXTRA 16:02: mouth [place] STRENGTH) 03 every 12 Medica l 500 mg (twelve) Branch tablet hours as needed for Pain. acetaminoph 2020-10 Yes 1000mg Take 1,000 [facility] en (TYLENOL 0-04 mg by ity of EXTRA 16:02: mouth [place] STRENGTH) 03 every 12 Medica l 500 mg (twelve) Branch tablet hours as needed for Pain. acetaminoph 2020-10 Yes 1000mg Take 1,000 [facility] en (TYLENOL 0-04 mg by ity of EXTRA 16:02: mouth [place] STRENGTH) 03 every 12 Medica l 500 mg (twelve) Branch tablet hours as needed for Pain. acetaminoph 2020-10 Yes 1000mg Take 1,000 [facility] en (TYLENOL 0-04 mg by ity of EXTRA 16:02: mouth [place] STRENGTH) 03 every 12 Medica l 500 mg (twelve) Branch tablet hours as needed for Pain. acetaminoph 2020-10 Yes 1000mg Take 1,000 [facility] en (TYLENOL 0-04 mg by ity of EXTRA 16:02: mouth [place] STRENGTH) 03 every 12 Medica l 500 mg (twelve) Branch tablet hours as needed for Pain. acetaminoph 2020-10 Yes 1000mg Take 1,000 [facility] en (TYLENOL 0-04 mg by ity of EXTRA 16:02: mouth [place] STRENGTH) 03 every 12 Medica l 500 mg (twelve) Branch tablet hours as needed for Pain. acetaminoph 2020-10 Yes 1000mg Take 1,000 [facility] en (TYLENOL 0-04 mg by ity of EXTRA 16:02: mouth [place] STRENGTH) 03 every 12 Medica l 500 mg (twelve) Branch tablet hours as needed for Pain. acetaminoph 2020-10 Yes 1000mg Take 1,000 [facility] en (TYLENOL 0-04 mg by ity of EXTRA 16:02: mouth [place] STRENGTH) 03 every 12 Medica l 500 mg (twelve) Branch tablet hours as needed for Pain. Flonase Flonase 2019-10 No 1{spray QD Flonase Allergy Allergy 11-05 _in_eac Allergy Relief 50 Relief 50 00:00: h_nostr Relief 50 MCG/ACT MCG/ACT 00 il} MCG/ACT Flonase Flonase 2019-10 No 1{spray QD [facility] Allergy Allergy 11-05 _in_eac Allergy Relief 50 Relief 50 00:00: h_nostr Relief 50 MCG/ACT MCG/ACT 00 il} MCG/ACT Flonase Flonase 2019-10 No 1{spray QD [facility] Allergy Allergy 11-05 _in_eac Allergy Relief 50 Relief 50 00:00: h_nostr Relief 50 MCG/ACT MCG/ACT 00 [place]} MCG/ACT Flonase Flonase 2019-10 No 1{spray QD Flonase Allergy Allergy 11-05 _in_eac Allergy Relief 50 Relief 50 00:00: h_nostr Relief 50 MCG/ACT MCG/ACT 00 il} MCG/ACT Flonase Flonase 2019-10 No 1{spray QD Flonase Allergy Allergy 11-05 _in_eac Allergy Relief 50 Relief 50 00:00: h_nostr Relief 50 MCG/ACT MCG/ACT 00 il} MCG/ACT Flonase Flonase 2019-10 No 1{spray QD Flonase Allergy Allergy 11-05 _in_eac Allergy Relief 50 Relief 50 00:00: h_nostr Relief 50 MCG/ACT MCG/ACT 00 il} MCG/ACT Flonase Flonase 2019-10 No 1{spray QD Flonase Allergy Allergy 11-05 _in_eac Allergy Relief 50 Relief 50 00:00: h_nostr Relief 50 MCG/ACT MCG/ACT 00 il} MCG/ACT Flonase Flonase 2019-10 No 1{spray QD Flonase Allergy Allergy 11-05 _in_eac Allergy Relief 50 Relief 50 00:00: h_nostr Relief 50 MCG/ACT MCG/ACT 00 il} MCG/ACT Flonase Flonase 2019-10 No 1{spray QD Flonase Allergy Allergy 11-05 _in_eac Allergy Relief 50 Relief 50 00:00: h_nostr Relief 50 MCG/ACT MCG/ACT 00 il} MCG/ACT Flonase Flonase 2019-10 No 1{spray QD Flonase Allergy Allergy 11-05 _in_eac Allergy Relief 50 Relief 50 00:00: h_nostr Relief 50 MCG/ACT MCG/ACT 00 il} MCG/ACT Lipitor Lipitor Yes Sowmya 1 tablet Co mmon 1-22 Millender in evening Spir it 00:00: - [facility] Metformin Metformin 0 Yes Sowmya 1 tablet Common HCl HCl 1-22 Millender with a Spirit 00:00: meal - [facility] Methotrexat Methotrexat Yes Sowmya 8 tablets Common e e Millender [facility] Folic Acid Folic Acid Yes Sowmya 1 tablet Common Millender [facility] Telmisartan Telmisartan Yes Sowmya 1 tablet Common Millender [facility] Telmisartan Telmisartan No 1{table QD Telmisarta 80 MG 80 MG t} n 80 MG Lipitor 10 Lipitor 10 No QD Lipitor 10 MG MG MG metFORMIN metFORMIN No 1{table BID metFORMIN HCl 1000 MG HCl 1000 MG t_with_ HCl 1000 a_meal} MG Methotrexat Methotrexat No 8{table Methotrexa e 2.5 MG e 2.5 MG ts} te 2.5 MG Calcium Calcium No Calcium Folic Acid Folic Acid No 1{table QD Folic Acid 1 MG 1 MG t} 1 MG Telmisartan Telmisartan No 1{table QD Telmisarta 80 MG 80 MG t} n 80 MG Calcium Calcium No Calcium Telmisartan Telmisartan No 1{table QD Telmisarta 80 MG 80 MG t} n 80 MG Lipitor 10 Lipitor 10 No QD Lipitor 10 MG MG MG metFORMIN metFORMIN No metFORMIN HCl 1000 MG HCl 1000 MG HCl 1000 MG Folic Acid Folic Acid No 1{table QD Folic Acid 1 MG 1 MG t} 1 MG Methotrexat Methotrexat No 8{table Methotrexa e 2.5 MG e 2.5 MG ts} te 2.5 MG Calcium Calcium No Calcium Telmisartan Telmisartan No 1{table QD Telmisarta 80 MG 80 MG t} n 80 MG Lipitor 10 Lipitor 10 No QD Lipitor 10 MG MG MG metFORMIN metFORMIN No metFORMIN HCl 1000 MG HCl 1000 MG HCl 1000 MG Folic Acid Folic Acid No 1{table QD Folic Acid 1 MG 1 MG t} 1 MG Methotrexat Methotrexat No 8{table Methotrexa e 2.5 MG e 2.5 MG ts} te 2.5 MG Folic Acid Folic Acid No 1{table QD Folic Acid 1 MG 1 MG t} 1 MG Methotrexat Methotrexat No 8{table Methotrexa e 2.5 MG e 2.5 MG ts} te 2.5 MG Telmisartan Telmisartan No 1{table QD Telmisarta 80 MG 80 MG t} n 80 MG Calcium Calcium No Calcium metFORMIN metFORMIN No metFORMIN HCl 1000 MG HCl 1000 MG HCl 1000 MG Lipitor 10 Lipitor 10 No QD Lipitor 10 MG MG MG Lipitor 10 Lipitor 10 No QD Lipitor 10 MG MG MG Calcium Calcium No Calcium Folic Acid Folic Acid No 1{table QD Folic Acid 1 MG 1 MG t} 1 MG metFORMIN metFORMIN No metFORMIN HCl 1000 MG HCl 1000 MG HCl 1000 MG Methotrexat Methotrexat No 8{table Methotrexa e 2.5 MG e 2.5 MG ts} te 2.5 MG Telmisartan Telmisartan No 1{table QD Telmisarta 80 MG 80 MG t} n 80 MG metFORMIN metFORMIN No metFORMIN HCl 1000 MG HCl 1000 MG HCl 1000 MG Calcium Calcium No Calcium Lipitor 10 Lipitor 10 No QD Lipitor 10 MG MG MG Telmisartan Telmisartan No 1{table QD Telmisarta 80 MG 80 MG t} n 80 MG Methotrexat Methotrexat No 8{table Methotrexa e 2.5 MG e 2.5 MG ts} te 2.5 MG Folic Acid Folic Acid No 1{table QD Folic Acid 1 MG 1 MG t} 1 MG metFORMIN metFORMIN No metFORMIN HCl 1000 MG HCl 1000 MG HCl 1000 MG Calcium Calcium No Calcium Lipitor 10 Lipitor 10 No QD Lipitor 10 MG MG MG Telmisartan Telmisartan No 1{table QD Telmisarta 80 MG 80 MG t} n 80 MG Methotrexat Methotrexat No 8{table Methotrexa e 2.5 MG e 2.5 MG ts} te 2.5 MG Folic Acid Folic Acid No 1{table QD Folic Acid 1 MG 1 MG t} 1 MG Lipitor 10 Lipitor 10 No QD Lipitor 10 MG MG MG Calcium Calcium No Calcium Folic Acid Folic Acid No 1{table QD Folic Acid 1 MG 1 MG t} 1 MG metFORMIN metFORMIN No metFORMIN HCl 1000 MG HCl 1000 MG HCl 1000 MG Methotrexat Methotrexat No 8{table Methotrexa e 2.5 MG e 2.5 MG ts} te 2.5 MG Telmisartan Telmisartan No 1{table QD Telmisarta 80 MG 80 MG t} n 80 MG Folic Acid Folic Acid No 1{table QD Folic Acid 1 MG 1 MG t} 1 MG Methotrexat Methotrexat No 8{table Methotrexa e 2.5 MG e 2.5 MG ts} te 2.5 MG Lipitor 10 Lipitor 10 No QD Lipitor 10 MG MG MG Calcium Calcium No Calcium Telmisartan Telmisartan No 1{table QD Telmisarta 80 MG 80 MG t} n 80 MG metFORMIN metFORMIN No 1{table BID metFORMIN HCl 1000 MG HCl 1000 MG t_with_ HCl 1000 a_meal} MG Folic Acid Folic Acid No 1{table QD Folic Acid 1 MG 1 MG t} 1 MG Calcium Calcium No Calcium metFORMIN metFORMIN No 1{table BID metFORMIN HCl 1000 MG HCl 1000 MG t_with_ HCl 1000 a_meal} MG Lipitor 10 Lipitor 10 No QD Lipitor 10 MG MG MG Methotrexat Methotrexat No 8{table Methotrexa e 2.5 MG e 2.5 MG ts} te 2.5 MG Immunizations Ordered Immunization Filled Immunization Date Status Commen ts Source Name Name Prevnar 13 Prevnar 13 2018-03-25 [facility]pleted [facility]Pneum[facility] Vaccine 12:09:00 - [facility] Prevnar 13 Prevnar 13 2018-03-25 Completed [facility] -Pneumonia Vaccine 12:09:00 - [facility] Prevnar 13 Prevnar 13 2018-03-25 Completed [facility] -Pneumonia Vaccine 12:09:00 [facility] Prevnar 13 Prevnar 13 2018-03-25 Completed [facility] Vaccine -Pneumonia Vaccine 12:09:00 - [facility] Prevnar 13 Prevnar 13 2018-03-25 Completed [facility] Vacc[facility] -Pneumonia Vaccine 12:09:00 [facility] Prevnar 13 Prevnar 13 2018-03-25 Completed [facility] Vaccine -Pneumonia Vaccine 12:09:00 - [facility] Prevnar 13 Prevnar 13 2018-03-25 Completed [facility] Vaccine -Pneumonia Vaccine 12:09:00 [facility] Prevnar 13 Prevnar 13 2018-03-25 Completed [facility] Vaccine -Pneumonia Vaccine 12:09:00 [facility] Prevnar 13 Prevnar 13 2018-03-25 Completed [facility] Vaccine -Pneumonia Vaccine 12:09:00 [facility] Prevnar 13 Prevnar 13 2018-03-25 Completed [facility] Vaccine -Pneumonia Vaccine 12:09:00 [facility] Prevnar 13 Prevnar 13 2018-03-25 Completed [facility] Vaccine -Pneumonia Vaccine 00:00:00 [facility] Vital Signs Vital Name Observation Time Observation Value Comments Source Body height 2023-02-14 15:08:00 154.9 cm [facility] Body weight 2023-02-14 15:08:00 65.772 kg [facility] BMI 2023-02-14 15:08:00 27.40 kg/m2 [facility] Systolic blood 2022-12-11 19:07:00 137 mm[Hg] Univer sity of pressure [facility] Diastolic blood 2022-12-11 19:07:00 55 mm[Hg] Unive rsity of pressure [facility] Heart rate 2022-12-11 19:07:00 66 /min [facility] Body temperature 2022-12-11 19:07:00 37.28 Leda [facility] Respiratory rate 2022-12-11 19:07:00 16 /min [facility] Body height 2022-12-11 19:07:00 154.9 cm [facility] Body weight 2022-12-11 19:07:00 65.59 kg [facility] BMI 2022-12-11 19:07:00 27.32 kg/m2 [facility] Oxygen saturation in 2022-12-11 19:07:00 97 /min [facility] by [place] [facility] Systolic blood 2022-11-27 14:45:00 107 mm[Hg] [facility] pressure [facility] Diastolic blood 2022-11-27 14:45:00 49 mm[Hg] [facility] pressure [facility] Heart rate 2022-11-27 14:40:00 62 /min [facility] Respiratory rate 2022-11-27 14:40:00 17 /min [facility] Oxygen saturation in 2022-11-27 14:40:00 99 /min [facility] blood by [place] [facility] Pulse oximetry Branch Body temperature 2022-11-27 14:10:00 36.22 Leda [facility] Body weight 2022-11-27 14:10:00 64.411 kg [facility] BMI 2022-11-27 14:10:00 26.92 kg/m2 [facility] Systolic blood 2022-11-27 13:25:00 148 mm[Hg] [facility]iver [facility] pressure [facility] Diastolic blood 2022-11-27 13:25:00 56 mm[Hg] Unive rsity of pressure [facility] Heart rate 2022-11-27 13:25:00 69 /min [facility] Body temperature 2022-11-27 13:25:00 36.22 Leda [facility] Respiratory rate 2022-11-27 13:25:00 16 /min [facility] Oxygen saturation in 2022-11-27 13:25:00 97 /min [facility] Arterial blood by [facility] Pulse oximetry Branch Systolic blood 2022-11-19 20:11:00 128 mm[Hg] Univer [facility]ity of pressure [facility] Diastolic blood 2022-11-19 20:11:00 68 mm[Hg] [facility] Heart rate 2022-11-19 20:09:00 66 /min [facility] Respiratory rate 2022-11-19 20:09:00 12 /min [facility] Body height 2022-11-19 20:09:00 154.7 cm [facility] Body weight 2022-11-19 20:09:00 64.683 kg [facility] BMI 2022-11-19 20:09:00 27.03 kg/m2 [facility] Oxygen saturation in 2022-11-19 20:09:00 98 /min [facility] Arterial blood by [facility] Pulse oximetry Branch Systolic blood 2022-11-06 17:10:00 124 mm[Hg] Univer [facility]ity of pressure [facility] Diastolic blood 2022-11-06 17:10:00 62 mm[Hg] Unive rsity of pressure [facility] Heart rate 2022-11-06 17:10:00 60 /min [facility] Respiratory rate 2022-11-06 17:10:00 29 /min [facility] Oxygen saturation in 2022-11-06 17:10:00 98 /min [facility] Arterial blood by [facility] Pulse oximetry Branch Body temperature 2022-11-06 16:40:00 36.39 Leda [facility] Body weight 2022-11-05 20:00:00 66.225 kg [facility] BMI 2022-11-05 20:00:00 27.60 kg/m2 [facility] Systolic blood 2022-11-06 15:31:00 151 mm[Hg] Univer [facility]ity [facility] pressure [facility] Diastolic blood 2022-11-06 15:31:00 73 mm[Hg] Unive rsity of pressure [facility] Heart rate 2022-11-06 15:31:00 77 /min [facility] Body temperature 2022-11-06 15:31:00 36.56 Leda [facility] Respiratory rate 2022-11-06 15:31:00 21 /min [facility] Oxygen saturation in 2022-11-06 15:31:00 99 /min University Arterial blood by [facility] Pulse oximetry Branch Body weight 2022-11-05 20:00:00 66.225 kg [facility] BMI 2022-11-05 20:00:00 27.60 kg/m2 [facility] height 2022-10-24 11:00:00 61.00 [in_i] [facility] weight 2022-10-24 11:00:00 146.4 [lb_av] [facility] temperature 2022-10-24 11:00:00 98.2 [degF] [facility] bmi 2022-10-24 11:00:00 27.66 kg/m2 [facility] oximetry 2022-10-24 11:00:00 97 % [facility] respiratory rate 2022-10-24 11:00:00 17 /min Comm on [facility] blood pressure 2022-10-24 11:00:00 132 mm[Hg] [facility] systolic [facility] blood pressure 2022-10-24 11:00:00 60 mm[Hg] Common [facility] - diastolic [facility] height 2022-10-24 10:00:00 61.00 [in_i] Common [facility] weight 2022-10-24 10:00:00 146.4 [lb_av] [facility] temperature 2022-10-24 10:00:00 98.2 [degF] Common [facility] bmi 2022-10-24 10:00:00 27.66 kg/m2 [facility] oximetry 2022-10-24 10:00:00 97 % [facility] respiratory rate 2022-10-24 10:00:00 17 /min Comm on [facility] blood pressure 2022-10-24 10:00:00 132 mm[Hg] Common [facility] - systolic [facility] blood pressure 2022-10-24 10:00:00 60 mm[Hg] Common [facility] - diastolic [facility] Systolic blood 2022-09-06 02:00:00 135 mm[Hg] Univer sity of pressure [facility] Diastolic blood 2022-09-06 02:00:00 49 mm[Hg] Unive rsity of [facility] Heart rate 2022-09-06 02:00:00 69 /min Universi ty [facility] Body temperature 2022-09-06 02:00:00 36.94 Leda [facility] 2022-09-06 02:00:00 17 /min [facility] Body height 2022-09-06 02:00:00 [facility]9 [facility] 2022-09-06 02:00:00 66.225 kg [facility] BMI 2022-09-06 02:00:00 27.59 kg/m2 [facility] Oxygen saturation in 2022-09-06 02:00:00 97 /min University Arterial blood by [facility] Pulse oximetry Branch height 2022-07-26 10:00:00 61.00 [in_i] Common [facility] weight 2022-07-26 10:00:00 144.4 [lb_av] Common [facility] temperature 2022-07-26 10:00:00 97.2 [degF] Common [facility] bmi 2022-07-26 10:00:00 27.28 kg/m2 Common [facility] oximetry 2022-07-26 10:00:00 99 % Common [facility] respiratory rate 2022-07-26 10:00:00 18 /min Comm on [facility] blood pressure 2022-07-26 10:00:00 138 mm[Hg] Common [facility] - systolic [facility] blood pressure 2022-07-26 10:00:00 60 mm[Hg] Common [facility] - diastolic [facility] Systolic blood 2022-07-06 18:10:00 110 mm[Hg] Univer sity of pressure [facility] Diastolic blood 2022-07-06 18:10:00 56 mm[Hg] Unive rsity of pressure [facility] Heart rate 2022-07-06 18:10:00 81 /min Universi ty [facility] Body temperature 2022-07-06 18:10:00 36.44 Leda [facility] rate 2022-07-06 18:10:00 18 /min [facility] Body height 2022-07-06 18:10:00 154.9 cm Universi [facility] Body weight 2022-07-06 18:10:00 63.776 kg [facility] BMI 2022-07-06 18:10:00 26.57 kg/m2 [facility] Oxygen saturation in 2022-07-06 18:10:00 98 /min [facility] Arterial blood by [facility] Pulse oximetry Branch height 2022-04-26 10:40:00 61.00 [in_i] Common [facility] weight 2022-04-26 10:40:00 148.6 [lb_av] Common [facility] temperature 2022-04-26 10:40:00 97.2 [degF] Common [facility] bmi 2022-04-26 10:40:00 28.07 kg/m2 Common S pirit [facility] oximetry 2022-04-26 10:40:00 97 % Common S pirit [facility] respiratory rate 2022-04-26 10:40:00 18 /min Comm on [facility] - [facility] blood pressure 2022-04-26 10:40:00 122 mm[Hg] Common [facility] - systolic [facility] blood pressure 2022-04-26 10:40:00 60 mm[Hg] Common [facility] - diastolic [facility] height 2022-01-24 10:40:00 61.00 [in_i] Common S pirit [facility] weight 2022-01-24 10:40:00 149 [lb_av] Common S pirit [facility] temperature 2022-01-24 10:40:00 98.1 [degF] Common S [facility]irit [facility] bmi 2022-01-24 10:40:00 28.15 kg/m2 [facility] oximetry 2022-01-24 10:40:00 98 % Common [facility] respiratory rate 2022-01-24 10:40:00 16 /min Comm on [facility] blood pressure 2022-01-24 10:40:00 99 mm[Hg] [facility] - systolic [facility] blood pressure 2022-01-24 10:40:00 40 mm[Hg] [facility] - diastolic [facility] height 2021-10-10 13:20:00 61.00 [in_i] [facility] weight 2021-10-10 13:20:00 156 [lb_av] Common S [facility] temperature 2021-10-10 13:20:00 97.7 [degF] Common S [facility] bmi 2021-10-10 13:20:00 29.47 kg/m2 [facility] oximetry 2021-10-10 13:20:00 97 % [facility] 2021-10-10 13:20:00 16 /min Comm on [facility] blood pressure 2021-10-10 13:20:00 134 mm[Hg] [facility] - systolic [facility] blood pressure 2021-10-10 13:20:00 60 mm[Hg] [facility] - diastolic [facility] height 2021-09-13 14:20:00 61.00 [in_i] Common S [facility] weight 2021-09-13 14:20:00 156 [lb_av] Common S pirit [facility] temperature 2021-09-13 14:20:00 97.7 [degF] [facility] bmi 2021-09-13 14:20:00 29.47 kg/m2 [facility] oximetry 2021-09-13 14:20:00 98 % [facility] blood pressure 2021-09-13 14:20:00 114 mm[Hg] [facility] - systolic [facility] blood pressure 2021-09-13 14:20:00 60 mm[Hg] [facility] - diastolic [facility] height 2021-08-08 09:40:00 61.00 [in_i] [facility] weight 2021-08-08 09:40:00 156.6 [lb_av] [facility] temperature 2021-08-08 09:40:00 97.9 [degF] [facility] bmi 2021-08-08 09:40:00 29.59 kg/m2 [facility] oximetry 2021-08-08 09:40:00 98 % [facility] respiratory rate 2021-08-08 09:40:00 16 /min Comm on [facility] blood pressure 2021-08-08 09:40:00 136 mm[Hg] [facility] systolic [facility] blood pressure 2021-08-08 09:40:00 61 mm[Hg] [facility] diastolic [facility] Procedures Procedure Date / Time Performing Source Performed Clinician [facility] PATIENT FINANCIAL POLICY 2023-02-14 Doctor Un iversity of 15:08:06 Unassigned, No [facility] ESOPHAGOGASTRODUODENOSCOPY 2022-11-27 Lorena Solis [facility] ersity of 13:33:00 [facility] EGD (ENDO) 2022-11-27 [facility] of 13:23:25 [facility] EGD (ENDO) 2022-11-27 [facility] of 13:23:25 [facility] POCT GLUCOSE (AUTOMATED) 2022-11-27 Lorena Solis Univer sity of 12:56:00 [facility] POCT GLUCOSE (AUTOMATED) 2022-11-27 Lorena Solis [facility] sity of 12:56:00 [facility] 2022-11-27 [facility] of 06:01:00 Unassigned, No [facility] CONSENT/REFUSAL FOR DIAGNOSIS AND 2022-11-19 [facility] 19:56:53 Unassigned, No [facility] COLONOSCOPY 2022-11-06 Lorena Solis [place] of 15:59:00 [facility] COLONOSCOPY (ENDO) 2022-11-06 [facility] o f 15:32:06 [facility] COLONOSCOPY (ENDO) 2022-11-06 [facility] o f 15:32:06 [facility] 2022-11-06 [facility] 06:01:00 Unassigned, No [facility] 2022-11-06 [facility] of 06:01:00 Unassigned, No [facility] CT HEAD WO CONTRAST 2022-09-06 Mellissa Parham [place] of 02:34:00 [facility] NOTICE OF PRIVACY PRACTICES 2022-09-06 [place] ersity of 01:55:07 Unassigned, No [facility] CONSENT/REFUSAL FOR DIAGNOSIS AND 2022-09-06 [facility] 01:53:42 Unassigned, No [facility] Encounters Start End Encounter Admission Attending Care Care Encounter Source Date/Time Date/Time Type Type Clinicians Facility Department ID 2022-09-28 Outpatient Astrid SOLIS CADREA CARLOS [id number] Univers 10:49:30 LORENA baer of [facility] 2022-07-24 [facility]patient [place], STLMLC STLC [id number] Common 08:27:00 Adolfo [facility] 2022-04-24 [facility]patient [facility], STLMLC STLMLC [id number] Common 09:26:00 Adolfo [facility] 2022-01-22 Outpatient [place], STLMLC STLMLC [id number] Common 10:11:00 Adolfo [facility] 2021-11-22 Outpatient [place], STLMLC STLMLC [id number] Common 14:21:56 Adolfo [address] [facility] 2021-11-22 Outpatient [place], STLMLC STLMLC [id number] Common 14:13:19 Adolfo [id number] [facility] 2021-11-22 Outpatient [place], STLMLC STLMLC [id number] Common 14:05:17 Adolfo [address] [facility] 2021-11-22 Outpatient [place], STLMLC STLMLC [id number] Common 12:40:50 Adolfo [address] [facility] 2021-11-22 Outpatient STLMLC STLMLC [id number] Common 12:24:04 [address] [facility] 2021-11-22 Outpatient Joel, Kin STLMLC STLMLC [id number] Common 11:59:13 [id number] [facility] 2021-11-22 Outpatient Millender, STLMLC STLMLC [id number] 11:25:34 Sowmya [address] [facility] 2021-11-22 Outpatient Fleming, STLMLC STLMLC [id number] Common 11:22:26 Leticia [address] [facility] 2021-11-22 Outpatient Fleming, STLMLC STLMLC [id number] Common 11:02:12 Leticia [address] [facility] 2021-11-22 Outpatient Fleming, STLMLC STLMLC [id number] Common 10:58:53 Leticia [address] [facility] 2021-11-22 Outpatient Fleming, STLMLC STLMLC [id number] Common 10:58:31 Leticia [address] [facility] 2021-08-27 Emergency [facility] [id number] Univers 20:38:57 ity [facility] 2021-08-27 Emergency [facility] [id number] Univers 06:11:51 ity [facility] 2021-08-26 Emergency [facility] [id number] Univers 09:00:50 ity [facility] 2021-08-26 Emergency [facility] [id number] Univers 08:54:15 ity of [facility] 2021-08-25 Emergency [facility] [id number] Univers 08:46:34 ity of [facility] 2023-03-18 2023-03-18 Outpatient R ALESSIO, [facility] [id number] Univers 13:20:00 13:20:00 DECLAN ity [facility] 2023-02-14 2023-02-14 Outpatient R DERRICK [facility] [id number] Univers 10:12:26 23:59:00 SANTANA ity [facility] 2023-02-14 2023-02-14 Office [facility] 1.2.840.114 [id number] Univers 10:15:00 10:30:[address] [facility] 350.1.13.10 it y of [place] 4.2.7.2.686 Emiliano as ALEJANDRO?BLEA [phone] Sc dical KNEY [address] MEDICAL OFFICE BUILDING 2023-02-14 2023-02-14 Orders Doctor DANITA 1.2.840.114 [id number] Univers 00:00:00 00:00:00 Only Unassigned, KATHY 350.1.13.10 ity of [place] [facility] 4.2.7.2.686 Emiliano as [id number] [address] 2022-12-18 2022-12-18 Hedge Trimmer Vickey, Adc Lab Main [facility] 1.2.8 40.114 [id number] Univers 09:45:00 10:00:00 Visit Lorena Solis 350.1.13.10 ity of [place] [id number] Sc dical [facility] [address] BUILDING 2022-12-18 2022-12-18 Outpatient R HUNG [facility] [id number] [id number] Univers 09:45:00 09:45:00 LORENA buffy [facility] 2022-12-11 2022-12-11 Hedge Trimmer 2, Adc Lab [facility] 1.2.840.114 [id number] Univers 14:30:00 14:45:00 Visit Lorena Solis 350.1.13.10 ity [facility] 4.2.7.2.[place] [id number] Sc dical NAL 353 [facility] 2022-12-11 2022-12-11 Outpatient R [facility] [id number] Univers 13:00:00 14:12:38 LORENA baer [facility] 2022-12-11 2022-12-11 Office [facility] 1.2.422.689 [id number] Univers 13:00:00 14:12:38 Visit Lorena GARCIA 350.1.13.10 i ty of [place] 4.2.7.[place] [phone] Sc dical NAL 188 [facility] 2022-11-27 2022-11-27 Outpatient R [facility] [place] 15096 [id number] Univers 06:41:00 08:45:00 LORENA itgoldy [facility] 2022-11-27 2022-11-27 [facility] 1.2.840.114 [id number] Univers 06:41:00 08:45:00 Encounter Lorena GARCIA 350.1.13.10 ity of [place].2.7.2.[place] SURGICAL [id number] [facility] [address] 2022-11-27 2022-11-27 Surgery [facility] 1.2.439.669 [id number] 7397 Univers 07:20:00 08:05:00 Lorena GARCIA 350.1.13.10 i ty of [place] 4.2.7.2.[place]ICAL [id number] [facility] [address] 2022-11-27 2022-11-27 Orders Doctor DANITA 1.2.840.114 [id number] Univers 00:00:00 00:00:00 Only Unassigned, KATHY 350.1.13.10 ity of [place] [facility] 4.2.7.2.686 Emiliano as [phone] [facility] [address] 2022-11-19 2022-11-19 Hedge Trimmer Vt-Lab [facility] 1.2.840.114 [id number] Univers 15:45:00 16:00:00 Visit Declan MccallumPEC 350.1.13. 10 ity of [place].2.7.2.686 [place] CENTER [id number] [facility] AND IRON [address] [facility] 2022-11-19 2022-11-19 Out[facility] [id number] Univers 14:40:00 15:05:26 DECLAN ity of [facility] 2022-11-19 2022-11-19 Office [facility] 1.2.992.953 [id number] 7436 Univers 14:40:00 15:05:26 Visit Declan PETERSONPEC 350.1.13.10 ity of [place] 4.2.7.2.686 [facility] [id number] [facility] [address] [facility]INIC 2022-11-19 2022-11-19 Orders Doctor DANITA 1.2.840.114 [id number] Univers 00:00:00 00:00:00 Only Unassigned, KATHY 350.1.13.10 ity of [place] [facility] 4.2.7.2.686 Emiliano as [id number] [facility] [address] 2022-11-06 2022-11-06 Outpatient R [facility] [place] [id number] [id number] Univers 09:23:00 11:30:00 LORENA ity of [facility] 2022-11-06 2022-11-06 [facility] 1.2.840.114 [id number] Univers 09:23:00 11:30:00 Encounter Lorena GARCIA 350.1.13.10 ity [facility] 4.2.7.2.[place] SUR[place]ICAL [id number] [facility] [address] 2022-11-06 2022-11-06 Surgery [facility] 1.2.055.178 [id number] Univers 09:45:00 10:39:00 Lorena GARCIA 350.1.13.10 i ty of [place] 4.2.7.2.[place] SUR[place]ICAL [id number] [facility] [address] 2022-11-06 2022-11-06 Prep For [facility] 1.2.840.114 [id number] Univers 00:00:00 00:00:00 Surgery Lorena GARCIA 350.1.13.10 i ty of [place] 4.2.7.2.[place] [id number] Sc dical NAL 204 [facility] 2022-11-06 2022-11-06 Telephone [facility] 1.2.840.114 [id number] Univers 00:00:00 00:00:00 Lorena GARCIA 350.1.13.10 i ty of [place] 4.2.7.2.[place] [id number] Sc dical NAL 204 [facility] 2022-11-05 2022-11-05 Prep For [facility] 1.2.840.114 [id number] [id number] Univers 00:00:00 00:00:00 Surgery Lorena GARCIA 350.1.13.10 i ty of [place] 4.2.7.2.[place] [id number] Sc dical NAL [address] [place] [address] 2022-11-05 2022-11-05 Telephone [facility] 1.2.840.114 [id number] Univers 00:00:00 00:00:00 Lorena GARCIA 350.1.13.10 i ty [place] 4.2.7.2.[place] [id number] Sc dical NAL 188 [facility] 2022-10-24 2022-10-24 [facility] [id number] Co mmon 00:00:00 00:00:00 VISIT Spirit ESTAB PT - CHI LEVEL 4 [facility] 2022-10-24 2022-10-24 SUB ANNUAL [facility] [id number] Common 00:00:00 00:00:00 MCR Spirit WELLNESS - CHI VISIT [facility] 2022-09-11 2022-09-11 Telephone [facility] 1.2.840.114 [id number] Univers 00:00:00 00:00:00 Lorena GARCIA 350.1.13.10 i ty of [place] 4.2.7.2.[place] [id number] Sc dical NAL [address] [place] [address] 2022-09-05 2022-09-05 Emergency X GRACIE, [facility] ERT [id number] Univers 20:12:00 21:27:00 MELLISSA ity of [facility] 2022-09-05 2022-09-05 Emergency [facility] 1.2.840.114 [id number] Univers 20:12:00 21:27:00 Mellissa S JOSE 350.1.13.10 i ty of [place] 4.2.7.2.686 [place] CAMPUS [id number] [facility] [address] 2022-09-05 2022-09-05 Orders Doctor DANITA 1.2.840.114 [id number] Univers 00:00:00 00:00:00 Only Unassigned, KATHY 350.1.13.10 ity of [place] [facility] 4.2.7.2.686 Emiliano as [id number] [facility] [address] 2022-07-26 2022-07-26 OFFICE [facility] [id number] Co mmon 00:00:00 00:00:00 VISIT EST Spir it PT LEVEL 3 - CHI [facility] 2022-07-13 2022-07-13 Prep For [facility] 1.2.840.114 [id number] Univers 00:00:00 00:00:00 Surgery Lorena JOSE 350.1.13.10 i ty of [place] 4.2.7.2.[place] [id number] Sc dic[address] 2022-07-06 2022-07-06 Outpatient R MAURILIO [facility] 1041 [id number] Univers 13:00:00 14:11:27 ZOË baer o f [facility] 2022-07-06 2022-07-06 Office [facility] 1.2.840.114 [id number] [id number] Univers 13:00:00 14:11:27 Visit Zoë GARCIA 350.1.13.10 ity [facility] 4.2.7.2.[place] [id number] Sc dic[address] 2022-06-21 2022-06-21 Outpatient R HUNG [facility] [id number] Univers 14:00:00 14:00:00 LORENA baer [facility] 2022-05-28 2022-05-28 Hedge Trimmer Vtc-Lab [facility] 1.2.840.114 [id number] Univers 17:15:00 17:30:00 Visit Declan Mccallum MULTISPEC 350.1.13. 10 ity of [place] 4.2.7.2.686 [facility] [id number] [address] DIABETES CLINIC 2022-05-28 2022-05-28 Outpatient [facility] [id number] Univers 16:40:00 17:18:41 DECLAN baer [facility] 2022-05-28 2022-05-28 Office [facility] 1.2.312.073 [id number] 0388 Univers 16:40:00 17:18:41 Visit Declan BELCHER 350.1.13.10 ity of [place] 4.2.7.2.[address] [place] [id number] DIABETES CLINIC 2022-05-28 2022-05-28 Outpatient [facility] [id number] Univers 16:40:00 17:18:41 DECLAN itgoldy [facility] 2022-05-18 2022-05-18 Kristie [facility]WINSL[facility] 1.2.840.114 [id number] Univers 00:00:00 00:00:00 Alem PETERSONPEC 350.1.13.10 ity of [place] 4.2.7.2.686 [facility] [id number] [address] DIABETES CLINIC 2022-04-26 2022-04-26 OFFICE STLMLC STLMLC [id number] Co mmon 00:00:00 00:00:00 VISIT EST Spir it PT LEVEL 3 - CHI [facility] 2022-04-17 2022-04-17 Hedge Trimmer Vickey, Lonnie Lab Main [facility] 1.2.8 40.114 [id number] Univers 10:00:00 10:15:00 Visit Angela Dela Cruz 350.1.13.10 ity of [place].7.2.[place] [id number] Sc julio COOPER 353 [facility] 2022-04-17 2022-04-17 Outpatient Astrid DELA CRUZ [facility] 74839 [id number] Univers 10:00:00 10:00:00 ANGELA ity [facility] 2022-04-17 2022-04-17 Orders Doctor DANITA 1.2.840.114 [id number] Univers 00:00:00 00:00:00 Only Unassigned, KATHY 350.1.13.10 ity of [place] [facility] 4.2.7.2.686 Emiliano as [id number] [facility] [address] 2022-04-03 2022-04-03 Office [facility] 1.2.840.114 [id number] Univers 14:00:00 14:15:00 Visit [facility] 350.1.13.10 it y of [place] 4.2.7.2.686 Emiliano as ALEJANDRO?BLEA [id number] Sc dictyrese KNEY 198 [facility] 2022-04-03 2022-04-03 Outpatient Astrid MEZA [facility] [id number] Univers 14:00:00 14:00:00 [facility] 2022-04-03 2022-04-03 Outpatient Astrid MEZA [facility] [id number] Univers 14:00:00 14:00:00 [facility] 2022-02-27 2022-02-27 Orders Doctor SAMAYOA 1.2.840.114 [id number] Univers 00:00:00 00:00:00 Only Unassigned, KATHY 350.1.13.10 ity of [place] [facility] 4.2.7.2.686 Emiliano as [phone] [facility] [address] 2022-02-06 2022-02-06 Outpatient [facility] [id number] Univers 12:57:52 23:59:00 [facility] 2022-02-06 2022-02-06 Office [facility] 1.2.840.114 [id number] Univers 13:30:00 14:00:00 Visit [facility] 350.1.13.10 it y of [place] 4.2.7.2.686 Emiliano as ALEJANDRO?BLEA [id number] Sc julio MENEZES [address] [place] [address] MEDICAL OFFICE BUILDING 2022-02-06 2022-02-06 Outpatient Astrid MEZA [facility] [id number] Univers 13:30:00 13:30:00 [facility] 2022-01-26 2022-01-26 Telephone Kermit [facility] 1.2.739.378 [id number] Univers 00:00:00 00:00:00 Alem Arzola MULTISPEC 350.1.13.10 ity of [place] 4.2.7.2.686 [facility] [place] [id number] [address] DI[facility]ES CLINIC 2022-01-25 2022-01-25 Hedge Trimmer Vtc-Lab [facility] 1.2.840.114 [id number] Univers 10:30:00 10:45:00 Visit Alme Carmen [facility] 350.1.13.10 ity of [place] 4.2.7.2.686 [facility] [place] [phone] [facility] AND [address] DIABETES CLINIC 2022-01-25 2022-01-25 Outpatient Astrid CARMEN [facility] [id number] Univers 09:45:00 10:24:04 ALEM baer [facility] 2022-01-25 2022-01-25 Office [facility] 1.2.840.114 [id number] Univers 09:45:00 10:24:04 Visit Alem PETERSONPEC 350.1.13.10 ity of [place] 4.2.7.2.686 [facility] [place] [id number] [address] DIABETES CLINIC 2022-01-24 2022-01-24 OFFICE STLC STLC [id number] Co mmon 00:00:00 00:00:00 VISIT Sung WELLS PT - CHI LEVEL 4 [facility] 2021-12-25 2021-12-25 Outpatient Astrid MCCALLUM [facility] [id number] Univers 13:00:00 13:00:00 DECLAN baer [facility] 2021-11-28 2021-11-28 Emergency [facility] 1.2.029.181 [id number] Univers 12:48:00 15:14:00 Thuy GARCIA 350.1.13.10 i ty of [place] 4.2.7.2.686 [facility] [id number] [place] [address] 2021-11-28 2021-11-28 Hedge Trimmer Vickey, Adc Lab Main [facility] 1.2.8 40.114 [id number] Univers 11:15:00 11:30:00 Visit Angela Dela Cruz 350.1.13.10 ity of [place] 4.2.7.2.686 [facility] [phone] Sc dical [address] 2021-11-28 2021-11-28 Outpatient Astrid DELA CRUZ [facility] [id number] Univers 11:15:00 11:15:00 ANGELA [facility] 2021-11-28 2021-11-28 Outpatient Astrid [facility] ERT [id number] Univers 11:15:00 11:15:00 ANGELA [facility] 2021-11-27 2021-11-27 Telephone [facility] 1.2.840.114 [id number] Univers 00:00:00 00:00:00 Declan Lala MULTISPEC 350.1.13.10 ity [facility] 4.2.7.2.686 [facility] [phone] [facility] AND [address] DIABETES CLINIC 2021-10-10 2021-10-10 OFFICE STLMLC STLMLC [id number] Co mmon 00:00:00 00:00:00 VISIT Spirit ESTAB PT - CHI LEVEL 4 [facility] 2021-09-13 2021-09-13 SUB ANNUAL STLMLC STLMLC [id number] Common 00:00:00 00:00:00 MCR Spirit WELLNESS - CHI VISIT [facility] 2021-08-15 2021-08-15 Hedge Trimmer Vickey, Adc Lab Main [facility] 1.2.8 40.114 [id number] Univers 09:24:16 09:39:16 Visit Angela Dela Cruz 350.1.13.10 ity of [place] [phone] Me dical nal 353 [facility] 2021-08-15 2021-08-15 Outpatient Astrid DELA CRUZ [facility] 24057 [id number] Univers 09:30:00 09:30:00 ANGELA itgoldy [facility] 2021-08-15 2021-08-15 Orders Doctor DANITA 1.2.840.114 [id number] Univers 00:00:00 00:00:00 Only Unassigned, KATHY 350.1.13.10 ity of [place] [facility] 4.2.7.2.686 Emiliano as [id number] [facility] [address] 2021-08-08 2021-08-08 OFFICE [facility] [id number] Co mmon 00:00:00 00:00:00 VISIT EST Spir it PT LEVEL 3 - CHI [facility] 2021-07-31 2021-07-31 Hospital [facility] 1.2.840.114 [id number] Univers 16:52:15 23:59:00 Encounter Declan Lala SPECIALTY 350.1.13.10 it[place] of [place]2.7.2.686 [place] C[place] AT [id number] Sc desireetyrese REYESY 807 [facility] 2021-07-31 2021-07-[address] [facility] 1.2.840.114 [id number] Univers 16:14:49 16:29:49 Visit Declan Mccallum MULTISPEC 350.1.13. 10 ity of [place] 4.2.7.2.686 [place] [id number] [facility] SINAI HELLER [address] [facility] 2021-07-31 2021-07-31 Office [facility] 1.2.566.628 [id number] Univers 15:33:48 16:13:10 Visit Declan Lala MULTISPEC 350.1.13.10 it[place] of [place]2.7.2.686 [place] [id number] [facility] SINAI HELLER [address] [facility] 2021-07-31 2021-07-31 Outpatient Astrid MCCALLUM [facility] 66083 [id number] Univers 15:20:00 15:20:00 DECLAN [facility] 2021-07-19 2021-07-19 Outpatient STLMLC STLC [id number] Common 00:00:00 00:00:00 [facility] 2021-07-19 2021-07-19 Orders Doctor DANITA 1.2.840.114 [id number] Univers 00:00:00 00:00:00 Only Unassigned, KATHY 350.1.13.10 ity of [place] [facility] 4.2.7.2.686 Emiliano as [id number] [place] [address] [address] 2021-05-15 2021-05-15 Outpatient Astrid [facility] [id number] Univers 14:00:00 14:00:00 DECLAN [facility] 2021-05-03 2021-05-03 Kristie [facility] 1.2.971.860 [id number] Univers 00:00:00 00:00:00 Declan Lala MULTISPEC 350.1.13.10 ity of [place] 4.2.7.2.686 [place] [facility] [phone] [address] DIABETES CLINIC 2021-04-19 2021-04-19 Outpatient STLMLC STLC [id number] Common 00:00:00 00:00:00 [facility] 2021-03-17 2021-03-18 Emergency X CAMILLE, [facility] ERT [id number] Univers 20:45:00 01:02:00 MELBA baer [facility] 2021-03-17 2021-03-18 [facility] 1.2.712.364 [id number] Univers 20:45:00 01:02:00 Melba Garcia 350.1.13.10 ity of [place] 4.2.7.2.686 [place] [phone] [place] 719794 [address] 2021-03-17 2021-03-17 Orders Doctor DANITA 1.2.840.114 [id number] Univers 00:00:00 00:00:00 Only Unassigned, KATHY 350.1.13.10 ity of [place] [facility] 4.2.7.2.686 Emiliano as [id number] [address] 2021-01-19 2021-01-19 Outpatient STLMLC STLMLC [id number] Common 00:00:00 00:00:00 [facility] 2021-01-12 2021-01-12 Kristie Du [facility] 1.2.840.114 [id number] Univers 00:00:00 00:00:00 Norberto MULTISPEC 350.1.13.10 ity of [place] 4.2.7.2.686 [facility] [id number] [address] DIABETES CLINIC 2021-01-11 2021-01-11 Outpatient STLMLC STLMLC [id number] Common 00:00:00 00:00:00 [facility] 2021-01-09 2021-01-09 Emergency [facility] 1.2.583.820 [id number] Univers 21:06:00 23:08:00 Roberto Garcia 350.1.13.10 ity of [place] 4.2.7.2.686 [facility] [id number] [facility] [address] 2020-12-19 2020-12-[address] [facility] 1.2.840.114 [id number] Univers 16:01:07 16:16:07 Visit Declan Mccallum MULTISPEC 350.1.13. 10 ity of [place] 4.2.7.2.[address] [place] [address] [id number] [facility] [address] [facility] 2020-12-19 2020-12-19 Office Alessio [facility] 1.2.507.347 [id number] Univers 15:30:21 16:01:36 Visit Declan Lala MULTISPEC 350.1.13.10 ity of [place] 4.2.7.2.[address] [place] [id number] DIABETES CLINIC 2020-12-19 2020-12-19 Outpatient Astrid MCCALLUM [facility] 11579 [id number] Univers 15:20:00 15:20:00 DECLAN ity of [facility] 2020-09-29 2020-09-29 [facility] 1.2.437.913 [id number] Univers 11:29:00 12:20:00 Ra Garcia 350.1.13.10 i ty of [place] 4.2.7.2.686 [facility] [id number] [place] 7[address] 2020-09-29 2020-09-29 [facility] 1.2.787.647 [id number] Univers 04:08:00 05:01:00 Roberto Garcia 350.1.13.10 ity of [place] 4.2.7.2.686 [facility] [id number] [address] 2020-09-29 2020-09-29 Orders Doctor DANITA 1.2.840.114 [id number] Univers 00:00:00 00:00:00 Only Unassigned, KATHY 350.1.13.10 ity of [place] [facility] 4.2.7.2.686 [facility] [phone] [address] 2020-09-05 2020-09-05 Outpatient STLMLC [facility] [id number] Common 00:00:00 00:00:00 [facility] 2020-09-02 2020-09-02 Office [facility] 1.2.011.538 [id number] Univers 10:10:04 11:34:57 Visit Gustavo Garcia 350.1.13.10 i ty of [place] 4.2.7.2.686 [facility] [id number] Sc dical [address] 2020-09-02 2020-09-02 Outpatient R MARA [facility] 53501 [id number] Univers 10:30:00 10:30:00 GUSTAVO baer [facility] 2020-08-05 2020-08-05 Outpatient Astrid LEZAMA [facility] 44901 [id number] Univers 13:00:00 13:00:00 GUSTAVO baer [facility] 2020-08-01 2020-08-01 Hedge Trimmer Vtc-Lab [facility] 1.2.840.114 [id number] Univers 16:00:32 16:15:32 Visit Declan Mccallum 350.1.13. 10 ity of [facility] 4.2.7.2.686 [facility] [place] [id number] [facility] AND IRON [address] [facility] 2020-08-01 2020-08-01 Office [facility] 1.2.564.139 [id number] 0188 Univers 15:25:37 16:01:26 Visit Declan B MULTISPEC 350.1.13.10 ity of [place] 4[place]2.7.2.686 [place] C[place] [id number] [facility] [address] [facility] 2020-08-01 2020-08-01 Outpatient [facility] [id number] Univers 15:40:00 15:40:00 DECLAN ity [facility] 2020-07-13 2020-07-13 [facility] 1.2.840.114 [id number] Univers 08:40:00 23:59:00 Encounter Gustavo Garcia 350.1.13.10 ity of [place] 4.2.7.2.686 [facility] [id number] [facility] [address] 2020-07-13 2020-07-13 Outpatient [facility] [id number] Univers 00:00:00 00:00:00 GUSTAVO baer [facility] 2020-07-01 2020-07-01 Office [facility] 1.2.310.693 [id number] Univers 15:19:12 16:57:45 Visit Gustavo Garcia 350.1.13.10 i ty of [place] 4.2.7.2.686 [facility] Professio [phone] [address] 2020-07-01 2020-07-01 [facility] [id number] Univers 15:30:00 15:30:00 GUSTAVO baer [facility] 2020-07-01 2020-07-01 [facility] [id number] Univers 15:30:00 15:30:00 GUSTAVO baer [facility] 2020-05-20 2020-05-20 Emergency [facility] [id number] Univers 19:35:54 22:27:00 Roberto Garcia [id number] ity of [place] [id number] [facility] [phone] [facility] [address] 2020-05-20 2020-05-20 Orders Doctor DANITA [id number] Univers 00:00:00 00:00:00 Only Unassigned, KATHY [id number] ity of [place] [facility] 4.2.7.2.686 Emiliano as [phone] [facility] [address] 2020-05-18 2020-05-18 Orders Doctor DANITA [id number] Univers 00:00:00 00:00:00 Only Unassigned, KATHY [id number] ity of [place] [facility] [id number] Emiliano as [phone] [facility] [address] 2020-05-12 2020-05-12 [place]patient [facility] [place] 31 [id number] Common 10:20:00 10:20:00 [facility] 2020-05-09 2020-05-09 Telemedici [facility] [id number] Univers 15:00:00 15:20:00 ne Visit Declan PETERSONPEC [id number] ity of [place] 4.2.7.2.686 [facility] [phone] [facility] [address] [facility] 2020-05-09 2020-05-09 Outpatient R ALESSIO [facility] [id number] Univers 15:00:00 15:00:00 DECLAN baer of [facility] 2020-04-25 2020-04-25 [facility] [id number] Univers 10:08:10 11:28:52 Visit Gustavo PETERSONPEC [id number] ity of [place] [id number] [facility] [phone] [facility] [address] [facility] 2020-04-25 2020-04-25 Outpatient R MARA [facility] [id number] Univers 10:00:00 10:00:00 GUSTAVO baer of [facility] 2020-04-25 2020-04-25 Outpatient R MARA [facility] [id number] Univers 10:00:00 10:00:00 GUSTAVO alegoldy [facility] 2020-02-17 2020-02-17 Outpatient Liza Flores [id number] Common 09:20:00 09:20:00 [facility] 2020-01-29 2020-01-29 Outpatient R MARA [facility] [id number] Univers 00:00:00 00:00:00 GUSTAVO alegoldy [facility] 2020-01-11 2020-01-11 [facility], [facility] [id number] Univers 11:34:51 11:49:51 Visit LezamaGustavo [facility] [id number] ity of [place] [id number] [facility] [phone] [facility] 2020-01-11 2020-01-11 Office Mara [facility] [id number] Univers 10:24:39 11:32:50 Visit [facility] [id number] it y of [place] [id number] [facility] [phone] [facility] [address] [facility] 2020-01-11 2020-01-11 Outpatient R MARA [facility] [id number] Univers 10:30:00 10:30:00 GUSTAVO alegoldy [facility] 2020-01-11 2020-01-11 Orders Doctor SAMAYOA [id number] Univers 00:00:00 00:00:00 Only Unassigned, KATHY [id number] ity of [place] [facility] [id number] Emiliano as [phone] [facility] [address] Branch 2019-12-16 2019-12-16 Office Prasanth [facility] [id number] Univers 08:13:03 09:08:04 Visit [facility] [id number] it y of [place] EYE [id number] Emiliano as CENTER [phone] [facility] [address] 2019-12-16 2019-12-16 Orders Doctor DANITA [id number] Univers 00:00:00 00:00:00 Only Unassigned, KATHY [id number] ity of [place] [facility] [id number] Emiliano as [phone] [facility] [address] [place] 2019-12-07 2019-12-07 [facility] [id number] Univers 12:59:46 15:34:03 Visit Declan PETERSONPEC [id number] ity of [place] [id number] [facility] [place] [phone] [facility] [address] [place] [address] [facility] 2019-12-07 2019-12-07 [facility] V[facility]-Lab [facility] [id number] Univers 13:38:21 13:48:21 Visit Declan Mccallum [facility] [id number]. 10 ity of [place] [id number] [facility] [place] [phone] [facility] [address] [facility] 2019-11-21 2019-11-[address] [facility] [id number] Univers 14:43:24 15:26:00 Annie Garcia [id number] i [place] of [id number] [phone] [facility] [address] 2019-11-21 2019-11-21 Orders Doctor DANITA [id number] Univers 00:00:00 00:00:00 Only Unassigned, KATHY [id number] ity of [place] [facility] [id number] Emiliano as [phone] [facility] [address] 2019-11-18 2019-11-18 [facility] [id number] Common 08:00:00 08:00:00 [facility] it [facility] 2019-11-04 2019-11-04 [facility] [id number] Common 09:40:00 09:40:00 [facility] it Road [facility] 2018-04-25 2018-04-25 Outpatient Liza De Jesust [id number] Common 11:45:00 11:45:[address] [facility] 2018-03-25 2018-03-25 Outpatient Liza De Jesust [id number] Common 11:15:00 11:15:[address] [facility] Results Test Description Test Time Test Comments Results Result Comments Source POCT GLUCOSE (AUTOMATED) 2022-11-27 12:59:55 Test Item Value Reference Range Interpretation Comme nts POCT GLU (test code = 2246923854) 126 mg/dL 70-110 H Lab Interpretation (test code = 31373-1) [facility] 12:59:55 Test Item Value Reference Range Interpretation Comments POCT GLU (test code = 7229722639) 126 mg/dL 70-110 H Lab Interpretation (test code = Abnormal 66922-5) [facility] [id number] 00:00:00 Test Item Value Reference Range Interpretation Comments A1C (test code = 4548-4) 5.9 HEMOGLOBIN [id number] 00:00:00 Test Item Value Reference Range Interpretation Comments A1C (test code = 4548-4) 5.9
[2023-03-08 23:06] LABS: Absolute Lymphocytes (CBC) 2.4 K/uL (0.7-4.9); Hematocrit 34.5 % (36.0-45.0); Lymphocytes % 31.4 % (15.3-44.8); MPV 6.9 fL (7.6-11.3); RBC Red Blood Cell Count 3.97 M/uL (3.86-4.86)
[2023-03-08 23:19] LABS: Protime INR 0.98
[2023-03-08 23:23] LABS: ALT/SGPT 14 U/L (13-56); AST/SGOT 14 U/L (15-37); Albumin 3.3 g/dL (3.4-5.0); Alkaline Phosphatase 90 U/L (45-117); BUN Blood Urea Nitrogen 21 mg/dL (7-18); Bicarbonate 25 mEq/L (21-32); Bilirubin Total 0.2 mg/dL (0.2-1.0); Glomerular Filtration Rate 65 ml/min (=/>90); Glucose Level 117 mg/dL (74-106); NT PRO-BNP 91 pg/mL (<125); Protein, Total 8.3 g/dL (6.4-8.2); Sodium Level 135 mEq/L (136-145); Troponin High Sensitivity 8.5 pg/mL (<58.9)
[2023-03-08 23:36] LABS: Bilirubin Direct < 0.1 mg/dL (0-0.2); Bilirubin Indirect, Calculated ND (0.2-0.8)
--- NOTE | 2023-03-09 01:45 | EDPHYS ---
Physician Documentation [facility] Name: Jaimie Henriquez Age: 72 yrs Sex: Female : 1950 Arrival Date: 03/08/2023 Time: 22:07 Bed 19 Private MD: ED Physician Darrell Gruber HPI: 03/08 22:38 This 72 yrs old Female presents to ER via Ambulatory with complaints of rn Breathing Difficulty, PAIN IN CHEST AND UPPER BACK WHEN INHALING. 22:38 The patient or guardian reports chest pain that is located primarily in the anterior rn aspect of left upper chest and left lateral posterior chest. 22:39 Onset: yesterday. The pain does not radiate. Associated signs and symptoms: Pertinent rn positives: cough, shortness of breath, Pertinent negatives: abdominal pain, syncope, vomiting. The chest pain is described as sharp, stabbing. Duration: The patient or guardian reports multiple episodes, that are intermittent. Modifying factors: The symptoms are alleviated by nothing. the symptoms are aggravated by deep breath. Severity of pain: At its worst the pain was moderate in the emergency department the pain is unchanged. The patient has not experienced similar symptoms in the past. The patient has not recently seen a physician. Denies injury or trauma. No hx of dvt/PE. No fever or chills. + mild cough. No abd pain. . Historical: - Allergies: 22:33 No Known Allergies; vc1 - Home Meds: 22:33 Metformin Oral [Active]; Methotrexate (Anti-Rheumatic) Oral [Active]; folic acid Oral vc1 [Active]; pantoprazole oral [Active]; - PMHx: 22:33 Pneumonia; Diabetes mellitus; Rheumatoid arthritis; Hypertensive disorder; vc1 - PSHx: 22:33 Appendectomy; vc1 - Immunization history:: Client reports having NOT received the Covid vaccine. - Social history:: Smoking status: Patient denies any tobacco usage or history of. - Family history:: not pertinent. - Hospitalizations: : No recent hospitalization is reported. ROS: 22:39 Constitutional: Negative for fever, chills, and weight loss, Eyes: Negative for injury, rn pain, redness, and discharge, Neck: Negative for injury, pain, and swelling, Cardiovascular: + left sided chest pain Respiratory: Negative for wheezing Abdomen/GI: Negative for abdominal pain, nausea, vomiting, diarrhea, and constipation, MS/Extremity: Negative for injury and deformity, Skin: Negative for injury, rash, and discoloration, Neuro: Negative for headache, weakness, numbness, tingling, and seizure. Exam: 22:37 ECG was reviewed by the Attending Physician. rn 22:39 Constitutional: This is a well developed, well nourished patient who is awake, alert, rn and in no acute distress. Head/Face: Normocephalic, atraumatic. Cardiovascular: Regular rate and rhythm. No pulse deficits. Respiratory: Clear bilateral breath sounds. No increased work of breathing, no retractions or nasal flaring. Abdomen/GI: Soft, non-tender, no peritoneal signs. Skin: Warm, dry MS/ Extremity: Pulses equal, no cyanosis. Neurovascular intact. Full, normal range of motion. Equal circumference. Neuro: Awake and alert, GCS 15 Vital Signs: 22:30 BP 154 / 60; Pulse 81; Temp 98.3; Pulse Ox 97% ; Weight 64.41 kg; Height 5 ft. 1 in. ; vc1 Pain 8/10; 22:45 BP 124 / 45; Pulse 76; Resp 14; Pulse Ox 14% on R/A; aa9 23:45 BP 115 / 47; Pulse 74; Resp 18 S; Pulse Ox 99% on R/A; aa9 22:30 Body Mass Index 26.83 (64.41 kg, 154.94 cm) vc1 22:30 Pain Scale: Adult vc1 MDM: 22:12 Patient medically screened. rn 03/09 01:43 Differential diagnosis: acute myocardial infarction, acute pericarditis, anxiety, chest rn wall pain, costochondritis, esophagitis, gastritis, gastroesophageal reflux disease (GERD), pericarditis, pleurisy, pneumonia, pneumothorax, pulmonary embolus, stable angina. Data reviewed: vital signs, nurses notes, lab test result(s), EKG, radiologic studies, CT scan, and as a result, I will discharge patient. Consideration of Admission/Observation Escalation of care including admission/observation considered. No acute findings on imaging, will dc home. Counseling: I had a detailed discussion with the patient and/or guardian regarding: the historical points, exam findings, and any diagnostic results supporting the discharge/admit diagnosis, lab results, radiology results, the need for outpatient follow up, to return to the emergency department if symptoms worsen or persist or if there are any questions or concerns that arise at home. Special discussion: I discussed with the patient/guardian in detail that at this point there is no indication for admission to the hospital. It is understood, however, that if the symptoms persist or worsen the patient needs to return immediately for re-evaluation. Based on the history and exam findings, there is no indication for further emergent testing or inpatient evaluation. I discussed with the patient/guardian the need to see the primary care provider for further evaluation of the symptoms. 03/08 22: Order name: BMP; Complete Time: 23:38 rn 03/08 22:27 Order name: Blood Culture Adult (2) rn 03/08 22:27 Order name: CBC with Diff; Complete Time: :38 rn 03/08 22:27 Order name: Hepatic Function; Complete Time: :38 rn 03/08 22:27 Order name: NT PRO-BNP; Complete Time: :38 03/08 22:27 Order name: PT-INR; Complete Time: :38 rn 03/08 22:27 Order name: Ptt, Activated; Complete Time: :38 rn 03/08 22:27 Order name: Troponin HS; Complete Time: :38 rn 03/08 22:27 Order name: CT Chest For PE Angio rn 03/08 22:27 Order name: XRAY CXR (1 view) rn 03/08 22:27 Order name: EKG; Complete Time: 22:28 rn 03/08 22:27 Order name: Cardiac monitoring; Complete Time: 22:50 rn 03/08 22:27 Order name: EKG - Nurse/Tech; Complete Time: 22:50 rn 03/08 22:27 Order name: IV Saline Lock; Complete Time: 22:50 rn 03/08 22:27 Order name: Labs collected and sent; Complete Time: 22:50 rn 03/08 22:27 Order name: O2 Per Protocol; Complete Time: 22:50 rn 03/08 22:27 Order name: O2 Sat Monitoring; Complete Time: 22:50 rn EC/12 22:37 Rate is 80 beats/min. Rhythm is regular. QRS [place] is Normal. VT interval is normal. QRS rn interval is normal. QT interval is normal. No Q waves. T waves are Normal. No ST changes noted. Clinical impression: Normal ECG. Interpreted by me. Reviewed by me. Administered Medications: 03/09 01:59 Drug: Decadron - Dexamethasone IVP 10 mg Route: IVP; Site: right forearm; aa9 01:59 Drug: AZITHromycin PO 500 mg Route: PO; aa9 Disposition Summary: 03/09/23 01:45 Discharge Ordered Location: Home rn Problem: new rn Symptoms: have improved rn Condition: Stable rn Diagnosis - Pain in unspecified joint rn - Pleurisy rn Followup: rn - With: Private Physician - When: As needed - Reason: Recheck today's complaints, Re-evaluation by your physician Discharge Instructions: - Discharge Summary Sheet rn - Joint Pain rn - Pain Without a Known Cause rn - Pleurisy rn Forms: - Medication Reconciliation Form rn - Thank You Letter rn - Antibiotic criminal defense attorney - Prescription Opioid Use rn Prescriptions: - Zithromax Z-Ashu 250 mg Oral Tablet - take 1 tablet by ORAL route as directed for 5 days Day 1 - take two (2) tablets rn one time. Day 2, 3, 4 , 5 take one (1) tablet once daily.; 6 tablet; Refills: 0, Product Selection Permitted - Medrol (Ashu) 4 mg Oral Tablets, Dose Pack - take 1 tablet by ORAL route as directed - follow package instructions; 1 rn packet; Refills: 0, Product Selection Permitted Signatures: Dispatcher [employer] Darrell Molina MD MD rn Calcote, Vanessa RN RN vc1 Tiff Juarez RN RN aa9
--- NOTE | 2023-03-09 01:45 | ER ---
Nurse's Notes [facility] Name: Jaimie Henriquez Age: 72 yrs Sex: Female : 1950 Arrival Date: 03/08/2023 Time: 22:07 Bed 19 Private MD: Diagnosis: Pain in unspecified joint;Pleurisy Presentation: 03/08 22:30 Chief complaint: Patient's son or daughter states: "Last night I started having a pain vc1 in my chest that moves to my back when I take in a breath. I can't take in deep breaths because it hurts too bad.". Coronavirus screen: Vaccine status: Patient reports being unvaccinated. At this time, the client does not indicate any symptoms associated with coronavirus-19. Ebola Screen: Patient negative for fever greater than or equal to 101.5 degrees Fahrenheit, and additional compatible Ebola Virus Disease symptoms Patient denies exposure to infectious person. Patient denies travel to an Ebola-affected area in the 21 days before illness onset. No symptoms or risks identified at this time. Initial Sepsis Screen: Does the patient meet any 2 criteria? No. Patient's initial sepsis screen is negative. Does the patient have a suspected source of infection? No. Patient's initial sepsis screen is negative. Risk Assessment: Do you want to hurt yourself or someone else? Patient reports no desire to harm self or others. Onset of symptoms was March 07, 2023. 22:30 Method Of Arrival: Ambulatory vc1 22:30 Acuity: BRENDON 3 vc1 Triage Assessment: 22:36 General: Appears in no apparent distress. uncomfortable, Behavior is cooperative, vc1 appropriate for age. Pain: Complains of pain in anterior aspect of left upper chest Pain radiates to back, anterior aspect of left shoulder and posterior aspect of left shoulder Pain currently is 8 out of 10 on a pain scale. Quality of pain is described as sharp. EENT: No deficits noted. No signs and/or symptoms were reported regarding the EENT system. Neuro: Level of Consciousness is awake, alert, obeys commands, Oriented to person, place, time, situation, Appropriate for age. Cardiovascular: Reports chest pain, shortness of breath. Respiratory: Reports shortness of breath at rest pain with respiration Onset: The symptoms/episode began/occurred yesterday, the patient has mild shortness of breath. GI: No deficits noted. No signs and/or symptoms were reported involving the gastrointestinal system. : No deficits noted. No signs and/or symptoms were reported regarding the genitourinary system. Derm: No deficits noted. No signs and/or symptoms reported regarding the dermatologic system. Musculoskeletal: No deficits noted. No signs and/or symptoms reported regarding the musculoskeletal system. Historical: - Allergies: 22:33 No Known Allergies; vc1 - Home Meds: 22:33 Metformin Oral [Active]; Methotrexate (Anti-Rheumatic) Oral [Active]; folic acid Oral vc1 [Active]; pantoprazole oral [Active]; - PMHx: 22:33 Pneumonia; Diabetes mellitus; Rheumatoid arthritis; Hypertensive disorder; vc1 - PSHx: 22:33 Appendectomy; vc1 - Immunization history:: Client reports having NOT received the Covid vaccine. - Social history:: Smoking status: Patient denies any tobacco usage or history of. - Family history:: not pertinent. - Hospitalizations: : No recent hospitalization is reported. Screenin:38 Abuse screen: Denies threats or abuse. Nutritional screening: No deficits noted. vc1 Tuberculosis screening: No symptoms or risk factors identified. Assessment: 22:38 Cardiovascular: Rhythm is regular. Respiratory: Airway is patent Respiratory effort is vc1 even, unlabored, Breath sounds are clear. 23:00 Reassessment: Patient appears in no apparent distress at this time. Patient and/or aa9 family updated on plan of care and expected duration. Pain level reassessed. Patient is alert, oriented x 3, equal unlabored respirations, skin warm/dry/pink. 03/09 00:00 Reassessment: Patient appears in no apparent distress at this time. CT at bedside. aa9 02:07 Reassessment: Patient appears in no apparent distress at this time. Patient and/or aa9 family updated on plan of care and expected duration. Pain level reassessed. Patient is alert, oriented x 3, equal unlabored respirations, skin warm/dry/pink. Patient denies pain at this time. Patient states feeling better. Vital Signs: 03/08 22:30 BP 154 / 60; Pulse 81; Temp 98.3; Pulse Ox 97% ; Weight 64.41 kg; Height 5 ft. 1 in. ; vc1 Pain 8/10; 22:45 BP 124 / 45; Pulse 76; Resp 14; Pulse Ox 14% on R/A; aa9 23:45 BP 115 / 47; Pulse 74; Resp 18 S; Pulse Ox 99% on R/A; aa9 22:30 Body Mass Index 26.83 (64.41 kg, 154.94 cm) vc1 22:30 Pain Scale: Adult vc1 ED Course: 22:12 Patient arrived in ED. [id number] 22:12 Darrell Gruber MD is Attending Physician. rn 22:18 Tiff Juarez, OEWN is Primary Nurse. aa9 22:32 Triage completed. vc1 22:38 Arm band placed on right wrist. vc1 22:39 Patient has correct armband on for positive identification. Placed in gown. Bed in low vc1 position. Call light in reach. Client placed on continuous cardiac and pulse oximetry monitoring. NIBP monitoring applied. 22:45 Inserted saline lock: 20 gauge in right forearm, using aseptic technique. Blood aa9 collected. 22:50 BMP Sent. aa9 22:50 Blood Culture Adult (2) Sent. aa9 22:50 CBC with Diff Sent. aa9 22:50 Hepatic Function Sent. aa9 22:50 NT PRO-BNP Sent. aa9 22:50 PT-INR Sent. aa9 22:50 Ptt, Activated Sent. aa9 22:50 Troponin HS Sent. aa9 22:55 XRAY CXR (1 view) In Process Unspecified. EDMS 05 00:32 CT Chest For PE Angio In Process Unspecified. EDMS 02:07 No provider procedures requiring assistance completed. IV discontinued, intact, aa9 bleeding controlled, No redness/swelling at site. Pressure dressing applied. Administered Medications: 01:59 Drug: Decadron - Dexamethasone IVP 10 mg Route: IVP; Site: right forearm; aa9 01:59 Drug: AZITHromycin PO 500 mg Route: PO; aa9 Medication: 02:07 VIS not applicable for this client. aa9 Outcome: 01:45 Discharge ordered by . rn 02:07 Discharged to home ambulatory, with family. aa9 02:07 Condition: stable 02:07 Discharge instructions given to patient, family, Instructed on discharge instructions, follow up and referral plans. medication usage, Demonstrated understanding of instructions, follow-up care, medications, Prescriptions given X 2. 02:07 Patient left the ED. aa9 Signatures: Dispatcher [employer] Darrell Molina MD MD rn Katie Quach jj6 Maira Chauhan RN RN vc1 Tiff Juarez RN RN aa9
[2023-03-09] MEDS ORDERED: dexAMETHasone 10 MG/ML VIAL ONE (02:00)
[2023-03-09] MEDS ORDERED: AZITHROMYCIN 250 MG TAB ONE (02:00)
[2023-03-09 02:30] VITALS: TEMP 98.3
[2023-03-09 02:38] VITALS: BP 115/47; O2SAT 99
--- NOTE | 2023-03-10 14:45 | EKG ---
Test Date: 2023-03-08 Test Time: 22:34:46 Membership Counselor: DUNIA MEASUREMENT RESULTS: Intervals: Rate: 80 WV: 134 QRSD: 78 QT: 358 QTc: 412 [place]: P: 68 WV: 134 QRS: 46 T: 68 INTERPRETIVE STATEMENTS: Normal sinus rhythm Low voltage QRS Borderline ECG Compared to ECG 06/22/2007 11:31:58 Low QRS voltage now present Electronically Signed On 03-10-23 14:43:42 CDT by Fidencio Clark
--- NOTE | 2023-03-12 13:58 | RAD REPORT ---
EXAM DESCRIPTION: CT - Chest For Pe Angio - 03/09/2023 2:04 am CLINICAL HISTORY: Left chest pain, worse with inspiration. COMPARISON: Chest radiograph from March 08, 2023. TECHNIQUE: CTA of the chest was performed following intravenous administration of iodinated contrast . Axial soft tissue and lung window, and coronal and sagittal soft tissue window reconstructions were created and sent to PACS. 3D postprocessing was performed on an independent workstation, with images sent to PACS for subsequen t review. This exam was performed according to our departmental dose-optimization program, which includes autom ated exposure control, adjustment of the mA and/or kV according to patient size and/or use of iterati ve reconstruction technique. FINDINGS: Vascular: The pulmonary arteries are well-opacified to the segmental level. No CT evidence of acute pulmonary thromboembolism. No evidence of aortic aneurysm or dissection. Mild calcific athe rosclerosis. Lungs and pleura: No pulmonary consolidation. No pleural effusion. No pneumothorax. Mediastinum and neck: No mediastinal lymphadenopathy by CT size criteria. Unremarkable appearance of the thyroid gland. Cardiac: No cardiomegaly or pericardial effusion. Abdomen: No significant upper abdominal abnormality identified. Musculoskeletal: No concerning osseous abnormality. Nonspecific mildly prominent bilateral axillary l ymph nodes, left slightly greater than right, measuring up to 2.4 x 1.2 cm on the left. No drainable fluid collection identified. No subpectorally or internal mammary lymphadenopathy. IMPRESSION: 1. No CTA evidence of acute pulmonary thromboembolism. 2. Nonspecific mildly prominent bilateral axillary lymph nodes, left slightly greater than right. 3. No additional potential acute findings. Electronically signed by: Jovita Lane MD 03/09/2023 12:52 AM CDT Due to temporary technical issues with the PACS/Fluency reporting system, reports are being signed by the in house radiologist without review as a courtesy to ensure prompt reporting. The interpreting r adiologist is fully responsible for the content of the report.
--- NOTE | 2023-03-12 13:59 | RAD REPORT ---
EXAM DESCRIPTION: RAD - Chest Single View - 03/08/2023 10:53 pm CLINICAL HISTORY: Chest pain;Cough. COMPARISON: None. TECHNIQUE: Single view AP chest radiograph(s). FINDINGS: The lungs are clear. No pulmonary infiltrate or edema identified. No pleural effusion. N o pneumothorax. Nonenlarged cardiomediastinal silhouette. No significant osseous abnormality. IMPRESSION: No acute cardiopulmonary abnormality identified by radiograph. Electronically signed by: Jovita Lane MD 03/08/2023 11:09 PM CDT Due to temporary technical issues with the PACS/Fluency reporting system, reports are being signed by the in house radiologist without review as a courtesy to ensure prompt reporting. The interpreting r adiologist is fully responsible for the content of the report.
== END 2023-03-09 02:07 | disposition home or self-care (01) ==
LOC: ER 22:07
DX: R09.1 Pleurisy (principal); M25.50 Pain in unspecified joint; E11.9 Type 2 diabetes mellitus without complications; I10 Essential (primary) hypertension
CPT/HCPCS: 93005; 87040 ×2; 85025; 80048; 36415; 85610; 80076; 85730; 84484; 83880; 71275; 71045; 96374; 99284; Q9967; J1100